=== PATIENT | male | born 1980 | race Hispanic/Latino ===

== ENCOUNTER 2016-02-16 09:09 | Emergency (ER) | payer OTHER ==
[~2016-02-16] VITALS: Ht 165.1 cm; Wt 77.1 kg
[~2016-02-16 09:09] MED LIST: CEPH500C PO; FAMO-119 PO; SUCR1ORA5 PO
[2016-02-16] MEDS ORDERED: ONDANSETRON 4 MG/2 ML (SDV) Z0FRAN IVP ONE (10:15)
[2016-02-16] MEDS ORDERED: NS IV 1000 ML 1,000 ML IV SCH (10:15)
[2016-02-16] MEDS ORDERED: fentaNYL INJECTION 100 MCG/2 ML AMP IVP ONE (10:15)
--- NOTE | 2016-02-16 10:21 | ED Abdominal Pain ---
General Chief Complaint: Abdominal/GI Problems Stated Complaint: ABD PAIN Nursing Triage Note: PT C/O L FLANK PAIN. HE C/O WORSENING PAIN WITH DEEP BREATHS. HE DENIES N/V/D, DYSURIA, HEMATURIA, OR FEVER. Sepsis Screen: No Definite Risk Source of Information: Patient, Family Exam Limitations: Language Barrier (the patient has brought a friend who is a [employer] teacher.) History of Present Illness Time Seen By Provider: 10:18 Initial Comments This is a 35-year-old male presents with left lower quadrant pain that began suddenly 2 days ago. Patient's pain is severe in nature sharp in quality and nonradiating. It is made worse by palpation of the abdomen. The patient has had nausea without vomiting. He denies similar episode in the past. Patient's past medical history is essentially unremarkable. The patient has had no previous abdominal surgery. He has noted no change in his stools. He has had no associated hematuria. He denies frequency or dysuria. The patient does not consume alcohol heavily. He denies recreational drugs. Allergies and Home Medications Allergies Coded Allergies: No Known Drug Allergies (Unverified , 06/13/11) Home Medications Famotidine 20 Mg Tablet #30 20 MG PO BID Prescribed by: RHEA OZUNA on 10/21/142107 Sucralfate 1 Gm/10 Ml Oral.susp #1 1 GM PO QID Prescribed by: RHEA OZUNA on 10/21/142107 Review of Systems Constitutional: No chills, No fever EENTM: No Blurred Vision Respiratory: Denies Cough Cardiovascular: Denies Chest Pain Gastrointestinal: Abdominal PainDenies Diarrhea, Denies Nausea, Denies Rectal Bleeding, Denies Vomiting Genitourinary: Denies Burning, Denies Drainage, Denies Frequency, Denies Flank Pain, Denies Hematuria Musculoskeletal: No back pain Skin: No rash Psychiatric/Neurological: No Symptoms Reported Endocrine: No Symptoms Reported Hematologic/Lymphatic: No Symptoms Reported Past Pxozuqn-Voijpl-Ggkela Hx Patient Social History Alcohol Use: Occasionally Uses Recreational Drug Use: No Smoking Status: Never a Smoker Recent Foreign Travel: No Contact w/Someone Who Travel: No Recent Infectious Disease Expo: No Recent Hopitalizations: No Physical Abuse Screen: No Sexual Abuse: No Seasonal Allergies Seasonal Allergies: No Surgeries HX Surgeries: No Respiratory Hx Respiratory Disorders: No Cardiovascular Hx Cardiac Disorders: No Neurological Hx Neurological Disorders: No Genitourinary Hx Genitourinary Disorders: No Gastrointestinal Hx Gastrointestinal Disorders: Yes Gastrointestinal Disorders: Gastroesophageal Reflux Musculoskeletal Hx Musculoskeletal Disorders: No Endocrine Hx Endocrine Disorders: No HEENT HX ENT Disorders: No Cancer Hx Cancer: No Psychosocial Hx Psychiatric Problems: No Integumentary HX Skin/Integumentary Disorder: No Blood Transfusions Hx Blood Disorders: No Adverse Reaction to a Blood Tr: No Reviewed Nursing Assessment Reviewed/Agree w Nursing PMH: Yes Family Medical History Significant Family History: No Pertinent Family Hx Physical Exam Vital Signs VS - Last 72 Hours, by Label 02/16/16 09:44 Temp 98.0 Pulse 88 Resp 20 B/P 128/85 Pulse Ox 97 O2 Delivery Room Air Capillary Refill : Less Than 3 Seconds General Appearance: WD/WN mild distress HEENT: normal ENT inspection Neck: normal inspection Respiratory: lungs clear Cardiovascular: regular rate, rhythm no murmur Gastrointestinal: normal bowel sounds guarding tenderness (left lower quadrant ) Extremities: normal range of motion non-tender Back: normal inspection Neurologic/Psychiatric: no motor/sensory deficits alert Skin: normal color warm/dry Progress/Results/Core Measures Results/Orders Lab Results Laboratory Tests Test 02/16/16 10:15 Range/Units Alanine Aminotransferase (ALT/SGPT) 74 H 0-55 U/L Albumin 4.7 H 3.2-4.5 G/DL Alkaline Phosphatase 99 40-136 U/L Anion Gap 9 5-14 MMOL/L Aspartate Amino Transf (AST/SGOT) 30 5-34 U/L BUN/Creatinine Ratio 27 Basophils # (Auto) 0.0 0.0-0.1 10^3/uL Basophils (%) (Auto) 0 0-10 % Blood Urea Nitrogen 20 H 7-18 MG/DL Calcium Level 9.2 8.5-10.1 MG/DL Carbon Dioxide Level 25 21-32 MMOL/L Chloride Level 103 98-107 MMOL/L Creatinine 0.75 0.60-1.30 MG/DL Eosinophils # (Auto) 0.7 H 0.0-0.3 10^3/uL Eosinophils (%) (Auto) 5 0-10 % Estimat Glomerular Filtration Rate > 60 Glucose Level 108 H 70-105 MG/DL Hematocrit 48 40-54 % Hemoglobin 17.2 13.3-17.7 G/DL Lipase 26 8-78 U/L Lymphocytes # (Auto) 1.6 1.0-4.0 X 10^3 Lymphocytes (%) (Auto) 12 12-44 % Mean Corpuscular Hemoglobin 31 25-34 PG Mean Corpuscular Hemoglobin Concent 36 32-36 G/DL Mean Corpuscular Volume 88 80-99 FL Mean Platelet Volume 10.6 H 7.4-10.4 FL Monocytes # (Auto) 1.1 H 0.0-1.0 X 10^3 Monocytes (%) (Auto) 8 0-12 % Neutrophils # (Auto) 10.1 H 1.8-7.8 X 10^3 Neutrophils (%) (Auto) 74 42-75 % Platelet Count 244 130-400 10^3/uL Potassium Level 3.8 3.6-5.0 MMOL/L Red Blood Count 5.49 4.35-5.85 10^6/uL Red Cell Distribution Width 13.0 10.0-14.5 % Sodium Level 137 135-145 MMOL/L Total Bilirubin 1.7 H 0.1-1.0 MG/DL Total Protein 7.5 6.4-8.2 G/DL White Blood Count 13.6 H 4.3-11.0 10^3/uL My Orders Orders-RUBEN VELAZQUEZ MD Ct Abdomen/Pelvis Wo (02/16/16 10:15) Cbc With Automated Diff (02/16/16 10:15) Comprehensive Metabolic Panel (02/16/16 10:15) Ua Culture If Indicated (02/16/16 10:15) Lipase (02/16/16 10:15) Ns Iv 1000 Ml (Sodium Chloride 0.9%) (02/16/16 10:15) Fentanyl Injection (Sublimaze Injection (02/16/16 10:15) Ondansetron Injection (Zofran Injectio (02/16/16 10:15) Medications Given in ED Current Medications Medications Dose Ordered Sig/Blade Route Start Time Stop Time Status Last Admin Dose Admin Fentanyl Citrate 50 mcg ONCE ONCE IVP 02/16/16 10:15 02/16/16 10:19 DC 02/16/16 10:25 50 MCG Vital Signs/I&O Vital Sign - Last 12Hours 02/16/16 09:44 Temp 98.0 Pulse 88 Resp 20 B/P 128/85 Pulse Ox 97 O2 Delivery Room Air Blood Pressure Mean: 99 Progress Note : Time: 11:03 Progress Note The patient's CT demonstrated uncomplicated diverticulitis of the descending colon. The patient's white count was elevated at 13,000. Patient's lipase was normal. Patient was treated with IV fentanyl and Zofran. Patient had only moderate relief with the pain and nausea medicine. I discussed treatment options with patient. The patient is comfortable with outpatient treatment. Most importantly the patient understands return to the emergency department if he worsens. Patient will follow up with his caregiver choice tomorrow. Will use Flagyl and Cipro for antibiotic coverage and hydrocodone and Zofran for pain and nausea. Departure Impression Impression: Primary Impression: Diverticulitis of intestine Qualified Code: K57.32 - Diverticulitis of large intestine without perforation or abscess without bleeding Disposition: 01 HOME, SELF-CARE Condition: Improved Departure-Patient Inst. Decision time for Depature: 11:08 Referrals: [facility],LOCAL PHYSICIAN (PCP) Primary Care Physician Patient Instructions: Diverticulitis (DC) Add. Discharge Instructions: Zofran, Vicodin, Cipro, and Flagyl as prescribed. Close follow-up with [facility] tomorrow. Return if any problems or questions. All discharge instructions reviewed with patient and/or family. Voiced understanding. RUBEN VELAZQUEZ MD Feb 16, 2016 10:21
[2016-02-16 10:22] LABS: BASOPHILS % (AUTO) 0 % (0-10); EOSINOPHILS # (AUTO) 0.7 10^3/uL (0.0-0.3); EOSINOPHILS % (AUTO) 5 % (0-10); LYMPHOCYTES # (AUTO) 1.6 X 10^3 (1.0-4.0); LYMPHOCYTES % (AUTO) 12 % (12-44); MEAN CORPUSCULAR HEMOGLOBIN 31 PG (25-34); MEAN CORPUSCULAR HGB CONC 36 G/DL (32-36); MEAN CORPUSCULAR VOLUME 88 FL (80-99); MEAN PLATELET VOLUME 10.6 FL (7.4-10.4); MONOCYTES # (AUTO) 1.1 X 10^3 (0.0-1.0); MONOCYTES % (AUTO) 8 % (0-12); NEUTROPHILS # (AUTO) 10.1 X 10^3 (1.8-7.8); NEUTROPHILS % (AUTO) 74 % (42-75); PLATELET COUNT 244 10^3/uL (130-400); RED BLOOD COUNT 5.49 10^6/uL (4.35-5.85); WHITE BLOOD COUNT 13.6 10^3/uL (4.3-11.0)
[2016-02-16 10:43] LABS: ALANINE AMINOTRANSFERASE 74 U/L (0-55); ALBUMIN 4.7 G/DL (3.2-4.5); ANION GAP 9 MMOL/L (5-14); ASPARTATE AMINO TRANSFERASE 30 U/L (5-34); BILIRUBIN,TOTAL 1.7 MG/DL (0.1-1.0); BLOOD UREA NITROGEN 20 MG/DL (7-18); BUN/CREATININE RATIO 27; CALCIUM 9.2 MG/DL (8.5-10.1); CARBON DIOXIDE 25 MMOL/L (21-32); CHLORIDE 103 MMOL/L (98-107); CREATININE SERUM 0.75 MG/DL (0.60-1.30); GFR ESTIMATED > 60; GLUCOSE 108 MG/DL (70-105); LIPASE 26 U/L (8-78); POTASSIUM 3.8 MMOL/L (3.6-5.0); SODIUM 137 MMOL/L (135-145); TOTAL PROTEIN 7.5 G/DL (6.4-8.2)
--- NOTE | 2016-02-16 10:50 | Diagnostic Imaging Report ---
PROCEDURE: CT abdomen and pelvis without contrast. TECHNIQUE: Multiple contiguous axial images were obtained through the abdomen and pelvis without the use of intravenous contrast. INDICATION: Left flank pain. COMPARISON: None available. FINDINGS: The visualized lung bases are clear. Diffusely decreased density of the liver, consistent with fatty infiltration of the liver. The liver is mildly enlarged. No focal hepatic mass identified. The spleen is unremarkable. The adrenal glands are unremarkable. The pancreas is unremarkable. The gallbladder is unremarkable. The bilateral kidneys and ureters are unremarkable. No aneurysmal dilatation of abdominal aorta. Tiny fat-containing umbilical hernia. The urinary bladder is unremarkable. Mild colonic diverticulosis. There is mural thickening with adjacent fat stranding within the mid descending colon. No adjacent focal fluid collection. The appendix is unremarkable. No bowel obstruction or pneumatosis. No significant adenopathy or free air. Trace free fluid in the left paracolic gutter. No acute osseous abnormality. IMPRESSION: 1. Findings are concerning for acute uncomplicated diverticulitis within the mid descending colon. No evidence of perforation or abscess formation. 2. Fatty infiltration of the liver with mild hepatomegaly. 3. Tiny fat-containing umbilical hernia. 4. Additional findings as above. Dictated by: Dictated on workstation # [id number]
[2016-02-16 11:18] VITALS: BP 128/85
== END 2016-02-16 11:18 | disposition home or self-care (01) ==
LOC: EDUNIT# 09:09 → ER 09:12
DX: K57.32 Diverticulitis of large intestine without perforation or abscess without bleeding (principal); K76.0 Fatty (change of) liver, not elsewhere classified; K42.9 Umbilical hernia without obstruction or gangrene
CPT/HCPCS: 36415; 74176; 80053; 83690; 85025; 96361; 96374

== ENCOUNTER 2016-05-10 15:52 | Emergency (ER) | payer SELFPAY ==
[~2016-05-10] VITALS: Ht 165.1 cm; Wt 77.1 kg
[2016-05-10] MEDS ORDERED: ONDANSETRON 4 MG/2 ML (SDV) Z0FRAN IVP ONE (16:30)
[2016-05-10] MEDS ORDERED: NS IV 1000 ML 1,000 ML IV SCH (16:30)
[2016-05-10] MEDS ORDERED: fentaNYL INJECTION 100 MCG/2 ML AMP IVP ONE (16:30)
--- NOTE | 2016-05-10 16:38 | ED GI ---
General Chief Complaint: Abdominal/GI Problems Stated Complaint: L SIDE PAIN Nursing Triage Note: PT C/O LLQ AND L FLANK PAIN. PT WAS HERE ON 02/16/16 FOR SAME SYMPTOMS AND WAS TX FOR DIVERTICULITIS WITH ABX, ZOFRAN, AND HYDROCODONE. PT HAS THESE MEDICATIONS WITH HIM TODAY AND ALL STILL HAVE MEDS IN THEM. Sepsis Screen: No Definite Risk Source of Information: Patient, Family Exam Limitations: Language Barrier History of Present Illness Time Seen By Provider: 16:34 Initial Comments This 35-year-old male presents with a complaint of left lower quadrant and left flank pain that began last night. The patient was here in February with a similar presentation from diverticulitis. The patient was treated with Cipro and Flagyl which she used for several days until his pain abated. The patient's pain is sharp in nature and non-radiating and is associated with nausea without vomiting. The patient took 2 of his Vicodin which he had at home for his pain without significant relief. Allergies and Home Medications Allergies Coded Allergies: No Known Drug Allergies (Unverified , 06/13/11) Home Medications Famotidine 20 Mg Tablet, 20 MG PO BID, #30 Ref 0 Prescribed by: RHEA OZUNA on 10/21/142107 Sucralfate 1 Gm/10 Ml Oral.susp, 1 GM PO QID, #1 Ref 1 Prescribed by: RHEA OZUNA on 10/21/142107 Review of Systems Constitutional: No chills, No fever EENTM: No Blurred Vision Respiratory: Denies Cough Cardiovascular: Denies Chest Pain Gastrointestinal: Abdominal Pain, Denies Diarrhea, Nausea, Denies Vomiting Genitourinary: Denies Burning, Denies Frequency, Flank Pain (left-sided) Musculoskeletal: No back pain Skin: No change in color, No rash Endocrine: No Symptoms Reported Hematologic/Lymphatic: No Symptoms Reported Past Qmwlmhl-Djdewo-Dtjjjh Hx Patient Social History Alcohol Use: Denies Use Recreational Drug Use: No Smoking Status: Never a Smoker 2nd Hand Smoke Exposure: No Recent Foreign Travel: No Contact w/Someone Who Travel: No Recent Infectious Disease Expo: No Recent Hopitalizations: No Seasonal Allergies Seasonal Allergies: No Surgeries HX Surgeries: No Respiratory Hx Respiratory Disorders: No Cardiovascular Hx Cardiac Disorders: No Neurological Hx Neurological Disorders: No Genitourinary Hx Genitourinary Disorders: No Gastrointestinal Hx Gastrointestinal Disorders: Yes Gastrointestinal Disorders: Gastroesophageal Reflux Musculoskeletal Hx Musculoskeletal Disorders: No Endocrine Hx Endocrine Disorders: No HEENT HX ENT Disorders: No Cancer Hx Cancer: No Psychosocial Hx Psychiatric Problems: No Integumentary HX Skin/Integumentary Disorder: No Blood Transfusions Hx Blood Disorders: No Adverse Reaction to a Blood Tr: No Reviewed Nursing Assessment Reviewed/Agree w Nursing PMH: Yes Family Medical History Significant Family History: No Pertinent Family Hx Physical Exam Vital Signs VS - Last 72 Hours, by Label 05/10/16 16:10 Temp 98.1 Pulse 85 Resp 16 B/P (MAP) 124/74 Pulse Ox 97 O2 Delivery Room Air Capillary Refill : Less Than 3 Seconds General Appearance: WD/WN, mild distress HEENT: normal ENT inspection, No scleral icterus (L) Neck: non-tender, full range of motion, supple Respiratory: chest non-tender, lungs clear, normal breath sounds Cardiovascular: regular rate, rhythm, no edema Gastrointestinal: normal bowel sounds, tenderness Extremities: normal range of motion, non-tender, normal inspection Back: normal inspection, no CVA tenderness Neurologic/Psychiatric: no motor/sensory deficits, alert, normal mood/affect, oriented x 3 Skin: normal color, warm/dry Progress/Results/Core Measures Results/Orders Lab Results Laboratory Tests Test 05/10/16 16:55 Range/Units White Blood Count 17.7 H 4.3-11.0 10^3/uL Red Blood Count 5.42 4.35-5.85 10^6/uL Hemoglobin 16.7 13.3-17.7 G/DL Hematocrit 47 40-54 % Mean Corpuscular Volume 88 80-99 FL Mean Corpuscular Hemoglobin 31 25-34 PG Mean Corpuscular Hemoglobin Concent 35 32-36 G/DL Red Cell Distribution Width 13.2 10.0-14.5 % Platelet Count 263 130-400 10^3/uL Mean Platelet Volume 10.7 H 7.4-10.4 FL Neutrophils (%) (Auto) 76 H 42-75 % Lymphocytes (%) (Auto) 11 L 12-44 % Monocytes (%) (Auto) 9 0-12 % Eosinophils (%) (Auto) 4 0-10 % Basophils (%) (Auto) 0 0-10 % Neutrophils # (Auto) 13.5 H 1.8-7.8 X 10^3 Lymphocytes # (Auto) 2.0 1.0-4.0 X 10^3 Monocytes # (Auto) 1.5 H 0.0-1.0 X 10^3 Eosinophils # (Auto) 0.7 H 0.0-0.3 10^3/uL Basophils # (Auto) 0.0 0.0-0.1 10^3/uL My Orders Orders - RUBEN VELAZQUEZ MD Cbc With Automated Diff (05/10/16 16:29) Comprehensive Metabolic Panel (05/10/16 16:29) Ua Culture If Indicated (05/10/16 16:29) Lipase (05/10/16 16:29) Ct Abd/Pelvis Wo(Kidney Stone) (05/10/16 16:29) Ns Iv 1000 Ml (Sodium Chloride 0.9%) (05/10/16 16:30) Fentanyl Injection (Sublimaze Injection (05/10/16 16:30) Ondansetron Injection (Zofran Injectio (05/10/16 16:30) Saline Lock/Iv-Start (05/10/16 16:36) Manual Differential (05/10/16 16:55) Medications Given in ED Current Medications Medications Dose Ordered Sig/Blade Route Start Time Stop Time Status Last Admin Dose Admin Fentanyl Citrate 50 mcg ONCE ONCE IVP 05/10/16 16:30 05/10/16 16:33 DC 05/10/16 16:42 50 MCG Ondansetron HCl 4 mg ONCE ONCE IVP 05/10/16 16:30 05/10/16 16:33 DC 05/10/16 16:42 4 MG Vital Signs/I&O Vital Sign - Last 12Hours 05/10/16 16:10 Temp 98.1 Pulse 85 Resp 16 B/P (MAP) 124/74 Pulse Ox 97 O2 Delivery Room Air Blood Pressure Mean: 91 Progress Note : Time: 17:[address] of the abdomen and pelvis demonstrated acute diverticulitis of the descending colon. Patient was placed on outpatient therapy Flagyl 500 mg 3 times a day for 10 days Cipro 500 mg twice a day for 10 days and hydrocodone 5/325 mg 20 tablets 1- 2 every 4-6 as needed for pain. I asked that the patient follow up closely with acute health in the next 48 hours. He was invited to return to emergency department if any further problems or questions. Departure Impression Impression: Primary Impression: Diverticulitis of intestine Qualified Codes: K57.32 - Diverticulitis of large intestine without perforation or abscess without bleeding Disposition: 01 HOME, SELF-CARE Condition: Improved Departure-Patient Inst. Decision time for Depature: 17:36 Referrals: [facility],LOCAL PHYSICIAN (PCP) Primary Care Physician Patient Instructions: Diverticulitis (DC) Add. Discharge Instructions: Flagyl, Cipro, and hydrocodone as prescribed. Close follow-up with [facility] within the next 48 hours for your diverticulitis. Come back for any problems. All discharge instructions reviewed with patient and/or family. Voiced understanding. RUBEN VELAZQUEZ MD May 10, 2016 16:38
--- NOTE | 2016-05-10 17:13 | Diagnostic Imaging Report ---
PROCEDURE: CT urinary tract, rule out kidney stone. TECHNIQUE: Multiple contiguous axial images were obtained through the abdomen and pelvis without the use of intravenous contrast. INDICATION: Left flank and left lower quadrant abdominal pain. FINDINGS: The lung bases are clear. The liver appears normal. The gallbladder is present. Pancreas is normal. Spleen is not enlarged. Adrenals and kidneys are normal. There is diverticulosis of the colon. There are inflammatory changes around the colon in the distal descending colon and sigmoid colon suggesting diverticulitis. Urinary bladder is normal. Prostate is not enlarged. There is no intraperitoneal free air or free fluid. IMPRESSION: Diverticulitis of the descending colon. Dictated by: Dictated on workstation # [id number]
[2016-05-10 17:17] LABS: BASOPHILS % (AUTO) 0 % (0-10); EOSINOPHILS # (AUTO) 0.7 10^3/uL (0.0-0.3); EOSINOPHILS % (AUTO) 4 % (0-10); LYMPHOCYTES % (AUTO) 11 % (12-44); MEAN CORPUSCULAR HEMOGLOBIN 31 PG (25-34); MEAN CORPUSCULAR HGB CONC 35 G/DL (32-36); MEAN CORPUSCULAR VOLUME 88 FL (80-99); MEAN PLATELET VOLUME 10.7 FL (7.4-10.4); MONOCYTES # (AUTO) 1.5 X 10^3 (0.0-1.0); MONOCYTES % (AUTO) 9 % (0-12); NEUTROPHILS # (AUTO) 13.5 X 10^3 (1.8-7.8); NEUTROPHILS % (AUTO) 76 % (42-75); PLATELET COUNT 263 10^3/uL (130-400); RED BLOOD COUNT 5.42 10^6/uL (4.35-5.85); RED CELL DISTRIBUTION WIDTH 13.2 % (10.0-14.5); WHITE BLOOD COUNT 17.7 10^3/uL (4.3-11.0)
[2016-05-10 17:33] LABS: BAND NEUTROPHILS 1 %; BASOPHILS % (MANUAL) 0 %; EOSINOPHILS % (MANUAL) 4 %; LYMPHOCYTES % (MANUAL) 24 %; NEUTROPHILS % (MANUAL) 71 %
[2016-05-10 17:37] LABS: ALANINE AMINOTRANSFERASE 88 U/L (0-55); ALBUMIN 4.5 G/DL (3.2-4.5); ANION GAP 12 MMOL/L (5-14); ASPARTATE AMINO TRANSFERASE 41 U/L (5-34); BILIRUBIN,TOTAL 1.6 MG/DL (0.1-1.0); BLOOD UREA NITROGEN 15 MG/DL (7-18); BUN/CREATININE RATIO 19; CALCIUM 9.2 MG/DL (8.5-10.1); CARBON DIOXIDE 24 MMOL/L (21-32); CHLORIDE 100 MMOL/L (98-107); CREATININE SERUM 0.77 MG/DL (0.60-1.30); GFR ESTIMATED > 60; GLUCOSE 94 MG/DL (70-105); LIPASE 25 U/L (8-78); POTASSIUM 3.5 MMOL/L (3.6-5.0); SODIUM 136 MMOL/L (135-145); TOTAL PROTEIN 7.6 G/DL (6.4-8.2)
[2016-05-10 17:57] VITALS: BP 124/74
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
== END 2016-05-10 17:57 | disposition home or self-care (01) ==
LOC: EDUNIT# 15:52 → ER 15:55
DX: K57.32 Diverticulitis of large intestine without perforation or abscess without bleeding (principal)
CPT/HCPCS: 36415; 74176; 80053; 83690; 85007; 85027; 96374; 96375

== ENCOUNTER 2016-07-22 18:31 | Emergency (ER) | payer SELFPAY ==
[~2016-07-22] VITALS: Ht 160 cm; Wt 90.7 kg
[2016-07-22] MEDS ORDERED: OMEP20CA12 PO (18:50)
[2016-07-22] MEDS ORDERED: NS IV 1000 ML 1,000 ML IV ONE (19:05)
--- NOTE | 2016-07-22 19:10 | ED Abdominal Pain ---
General Chief Complaint: Abdominal/GI Problems Stated Complaint: L SIDE STOMACH PAIN Nursing Triage Note: PT AMBULATED TO ROOM, PT STATES HE IS HAVING LEFT LOWER ABD PAIN. PT ALSO STATES HE IS HAVING GENERALIZED PAIN ALL OVER. PT REPORTS PAIN STARTED YESTERDAY. Sepsis Screen: Possible Sepsis Risk Source of Information: Patient, Family, Old Records, RN Notes Reviewed Exam Limitations: Language Barrier History of Present Illness Time Seen By Provider: 18:57 Initial Comments Patient presents along c/ his family c/ c/o LLQ abdominal pain that apparently started yesterday and has become progressively worse. Worse c/ movement. Denies any N/V/D, or constipation; No symptoms. Did have low grade fever here. Patient's Slovenian is some what limited. Review of records reveal 2 visits here this year for diverticulitis which would be high on his differential tonight. Timing/Duration: 24 Hours Severity/Quality: Moderate Location: LLQ Radiation: No Radiation Activities at Onset: None Modifying Factors: Worsens With Movement, Improves With Resting Associated Symptoms: Denies Symptoms Allergies and Home Medications Allergies Coded Allergies: No Known Drug Allergies (Unverified , 06/13/11) Home Medications Ciprofloxacin HCl 500 Mg Tablet, 500 MG PO BID, #20 Ref 0 Prescribed by: EDWARD STRAUSS on 07/22/162057 Hydrocodone/Acetaminophen 1 Each Tablet, 1 EACH PO Q6H, #20 Ref 0 Prescribed by: EDWARD STRAUSS on 07/22/162057 Metronidazole 500 Mg Tablet, 500 MG PO QID, #40 Ref 0 Prescribed by: EDWARD STRAUSS on 07/22/162057 Omeprazole 20 Mg Capsule.dr, 20 MG PO, (Reported) Review of Systems Constitutional: see HPI Gastrointestinal: See HPI, Abdominal Pain (LLQ) All Other Systems Reviewed Negative Unless Noted: Yes (Negative excepted noted.) Past Vxvmaop-Zhiyvu-Zwxlqj Hx Patient Social History Alcohol Use: Denies Use Recreational Drug Use: No Smoking Status: Never a Smoker 2nd Hand Smoke Exposure: No Recent Foreign Travel: No Contact w/Someone Who Travel: No Recent Infectious Disease Expo: No Recent Hopitalizations: No Seasonal Allergies Seasonal Allergies: No Surgeries HX Surgeries: No Respiratory Hx Respiratory Disorders: No Cardiovascular Hx Cardiac Disorders: No Neurological Hx Neurological Disorders: No Genitourinary Hx Genitourinary Disorders: No Gastrointestinal Hx Gastrointestinal Disorders: Yes Gastrointestinal Disorders: Gastroesophageal Reflux Musculoskeletal Hx Musculoskeletal Disorders: No Endocrine Hx Endocrine Disorders: No HEENT HX ENT Disorders: No Cancer Hx Cancer: No Psychosocial Hx Psychiatric Problems: No Integumentary HX Skin/Integumentary Disorder: No Blood Transfusions Hx Blood Disorders: No Adverse Reaction to a Blood Tr: No Family Medical History Significant Family History: No Pertinent Family Hx Physical Exam Vital Signs VS - Last 72 Hours, by Label 07/22/16 18:44 Temp 99.8 Pulse 111 Resp 20 B/P (MAP) 137/82 Pulse Ox 96 O2 Delivery Room Air Capillary Refill : Less Than 3 Seconds General Appearance: WD/WN, no apparent distress, obese HEENT: normal ENT inspection Neck: normal inspection Respiratory: no respiratory distress Cardiovascular: tachycardia Gastrointestinal: distended, guarding (LLQ), tenderness (LLQ) Rectal: deferred Back: CVA tenderness (L) Neurologic/Psychiatric: no motor/sensory deficits, alert, normal mood/affect, oriented x 3 Skin: warm/dry Progress/Results/Core Measures Results/Orders Lab Results Laboratory Tests Test 07/22/16 19:02 Range/Units White Blood Count 15.2 H 4.3-11.0 10^3/uL Red Blood Count 4.91 4.35-5.85 10^6/uL Hemoglobin 15.2 13.3-17.7 G/DL Hematocrit 44 40-54 % Mean Corpuscular Volume 89 80-99 FL Mean Corpuscular Hemoglobin 31 25-34 PG Mean Corpuscular Hemoglobin Concent 35 32-36 G/DL Red Cell Distribution Width 13.5 10.0-14.5 % Platelet Count 230 130-400 10^3/uL Mean Platelet Volume 11.0 H 7.4-10.4 FL Neutrophils (%) (Auto) 77 H 42-75 % Lymphocytes (%) (Auto) 9 L 12-44 % Monocytes (%) (Auto) 11 0-12 % Eosinophils (%) (Auto) 2 0-10 % Basophils (%) (Auto) 0 0-10 % Neutrophils # (Auto) 11.7 H 1.8-7.8 X 10^3 Lymphocytes # (Auto) 1.4 1.0-4.0 X 10^3 Monocytes # (Auto) 1.7 H 0.0-1.0 X 10^3 Eosinophils # (Auto) 0.4 H 0.0-0.3 10^3/uL Basophils # (Auto) 0.0 0.0-0.1 10^3/uL Neutrophils % (Manual) 75 % Lymphocytes % (Manual) 23 % Monocytes % (Manual) 0 % Eosinophils % (Manual) 0 % Basophils % (Manual) 0 % Band Neutrophils 2 % Blood Morphology Comment NORMAL Urine Color CURT H Urine Clarity SLIGHTLY CLOUDY Urine pH 6 5-9 Urine Specific [place] 1.020 1.016-1.022 Urine Protein 1+ H NEGATIVE Urine Glucose (UA) NEGATIVE NEGATIVE Urine Ketones NEGATIVE NEGATIVE Urine Nitrite NEGATIVE NEGATIVE Urine Bilirubin NEGATIVE NEGATIVE Urine Urobilinogen 4 H NORMAL MG/DL Urine Leukocyte Esterase NEGATIVE NEGATIVE Urine RBC (Auto) NEGATIVE NEGATIVE Urine RBC NONE /HPF Urine WBC RARE /HPF Urine Squamous Epithelial Cells 0-2 /HPF Urine Crystals NONE /LPF Urine Bacteria NEGATIVE /HPF Urine Casts NONE /LPF Urine Mucus NEGATIVE /LPF Urine Culture Indicated NO Sodium Level 136 135-145 MMOL/L Potassium Level 3.5 L 3.6-5.0 MMOL/L Chloride Level 102 98-107 MMOL/L Carbon Dioxide Level 22 21-32 MMOL/L Anion Gap 12 5-14 MMOL/L Blood Urea Nitrogen 14 7-18 MG/DL Creatinine 0.78 0.60-1.30 MG/DL Estimat Glomerular Filtration Rate > 60 BUN/Creatinine Ratio 18 0-20 Glucose Level 110 H 70-105 MG/DL Calcium Level 9.5 8.5-10.1 MG/DL Total Bilirubin 2.5 H 0.1-1.0 MG/DL Aspartate Amino Transf (AST/SGOT) 94 H 5-34 U/L Alanine Aminotransferase (ALT/SGPT) 152 H 0-55 U/L Alkaline Phosphatase 103 40-136 U/L Total Protein 7.9 6.4-8.2 GM/DL Albumin 4.4 3.2-4.5 GM/DL Lipase 24 8-78 U/L My Orders Orders - EDWARD STRAUSS DO Saline Lock/Iv-Start (07/22/16 19:05) Cbc With Automated Diff (07/22/16 19:05) Comprehensive Metabolic Panel (07/22/16 19:05) Lipase (07/22/16 19:05) Ua Culture If Indicated (07/22/16 19:05) Ns Iv 1000 Ml (Sodium Chloride 0.9%) (07/22/16 19:05) Ct Abdomen/Pelvis W (07/22/16 19:09) Ketorolac Injection (Toradol Injection) (07/22/16 19:15) Manual Differential (07/22/16 19:02) Iohexol Injection (Omnipaque 350 Mg/Ml 1 (07/22/16 19:15) Ns (Ivpb) (Sodium Chloride 0.9% Ivpb Bag (07/22/16 19:15) Metronidazole Tablet (Flagyl Tablet) (07/22/16 21:00) Ciprofloxacin Tablet (Cipro Tablet) (07/22/16 20:51) Rx-Hydrocodone/Apap 5-325 Mg (Rx-Vicodin (07/22/16 21:00) Hydrocodone/Apap 5/325 Tablet (Lortab 5 (07/22/16 21:08) Medications Given in ED Current Medications Medications Dose Ordered Sig/Blade Route Start Time Stop Time Status Last Admin Dose Admin Iohexol 100 ml ONCE ONCE IV 07/22/16 19:15 07/22/16 19:17 DC 07/22/16 19:36 100 ML Ketorolac Tromethamine 30 mg ONCE ONCE IVP 07/22/16 19:15 07/22/16 19:16 DC 07/22/16 19:20 30 MG Sodium Chloride 100 ml ONCE ONCE IV 07/22/16 19:15 07/22/16 19:17 DC 07/22/16 19:36 80 ML Sodium Chloride 1,000 ml @ 0 mls/hr Q0M ONCE IV 07/22/16 19:05 07/22/16 19:11 DC 07/22/16 19:20 1,000 MLS/HR Vital Signs/I&O Vital Sign - Last 12Hours 07/22/16 18:44 Temp 99.8 Pulse 111 Resp 20 B/P (MAP) 137/82 Pulse Ox 96 O2 Delivery Room Air Blood Pressure Mean: 100 Progress Note : Progress Note Discussed c/ Dr. Tenorio, surgeon communication manager, who happened to be around and came by the ED and saw the patient. Patient is going to follow up c/ him as an outpatient once this calms down. With this being the 3rd episode in 6 months, he is apparently a candidate for surgical resection of the area. Diagnostic Imaging Diagonstic Imaging: CT Plain Films/CT/US/NM/MRI: abdomen, pelvis Departure Impression Impression: Primary Impression: Diverticulitis of intestine Additional Impression: Abdominal pain Disposition: 01 HOME, SELF-CARE Condition: Stable Departure-Patient Inst. Referrals: NAVJOT TENORIO DO Patient Instructions: Diverticulitis (DC) Add. Discharge Instructions: All discharge instructions reviewed with patient and/or family. Voiced understanding. DR. TENORIO'S OFFICE WILL CONTACT YOU AND ARRANGE FOLLOW UP. Scripts Hydrocodone/Acetaminophen (Hydrocodon-Acetaminophn 10-325) 1 Each Tablet 1 EACH PO Q6H for Pain, #20 TAB 0 Refills Prov: EDWARD STRAUSS DO 07/22/16 Metronidazole (Flagyl) 500 Mg Tablet 500 MG PO QID for Abdominal Pain, #40 TAB 0 Refills Prov: EDWARD STRAUSS DO 07/22/16 Ciprofloxacin HCl (Cipro) 500 Mg Tablet 500 MG PO BID for Abdominal Pain, #20 TAB 0 Refills Prov: EDWARD STRAUSS DO 07/22/16 EDWARD STRAUSS DO Jul 22, 2016 19:10
[2016-07-22 19:12] LABS: BASOPHILS % (AUTO) 0 % (0-10); EOSINOPHILS # (AUTO) 0.4 10^3/uL (0.0-0.3); EOSINOPHILS % (AUTO) 2 % (0-10); LYMPHOCYTES # (AUTO) 1.4 X 10^3 (1.0-4.0); LYMPHOCYTES % (AUTO) 9 % (12-44); MEAN CORPUSCULAR HEMOGLOBIN 31 PG (25-34); MEAN CORPUSCULAR HGB CONC 35 G/DL (32-36); MEAN CORPUSCULAR VOLUME 89 FL (80-99); MONOCYTES # (AUTO) 1.7 X 10^3 (0.0-1.0); MONOCYTES % (AUTO) 11 % (0-12); NEUTROPHILS # (AUTO) 11.7 X 10^3 (1.8-7.8); NEUTROPHILS % (AUTO) 77 % (42-75); PLATELET COUNT 230 10^3/uL (130-400); RED BLOOD COUNT 4.91 10^6/uL (4.35-5.85); RED CELL DISTRIBUTION WIDTH 13.5 % (10.0-14.5); WHITE BLOOD COUNT 15.2 10^3/uL (4.3-11.0)
[2016-07-22 19:13] LABS: BILIRUBIN,URINE NEGATIVE (NEGATIVE); KETONES,URINE NEGATIVE (NEGATIVE); LEUKOCYTE ESTERASE ,URINE NEGATIVE (NEGATIVE); NITRITE,URINE NEGATIVE (NEGATIVE); PH,URINE 6 (5-9); PROTEIN,URINE 1+ (NEGATIVE); UROBILINOGEN,URINE 4 MG/DL (NORMAL)
[2016-07-22] MEDS ORDERED: KETOROLAC 30 MG/ML VIAL IVP ONE (19:15)
[2016-07-22] MEDS ORDERED: IOHEXOL 350 MG/ML 100 ML (OMNIPAQUE 350) VIAL IV ONE (19:15)
[2016-07-22] MEDS ORDERED: NS 100 ML (IVPB) BAG IV ONE (19:15)
[2016-07-22 19:32] LABS: ALANINE AMINOTRANSFERASE 152 U/L (0-55); ALBUMIN 4.4 GM/DL (3.2-4.5); ANION GAP 12 MMOL/L (5-14); ASPARTATE AMINO TRANSFERASE 94 U/L (5-34); BILIRUBIN,TOTAL 2.5 MG/DL (0.1-1.0); BLOOD UREA NITROGEN 14 MG/DL (7-18); BUN/CREATININE RATIO 18 (0-20); CALCIUM 9.5 MG/DL (8.5-10.1); CARBON DIOXIDE 22 MMOL/L (21-32); CHLORIDE 102 MMOL/L (98-107); CREATININE SERUM 0.78 MG/DL (0.60-1.30); GFR ESTIMATED > 60; GLUCOSE 110 MG/DL (70-105); HEMOLYSIS 9 (0-29); ICTERUS 1.8 (0-1.9); LIPASE 24 U/L (8-78); LIPEMIA 4 (0-49); POTASSIUM 3.5 MMOL/L (3.6-5.0); SODIUM 136 MMOL/L (135-145); TOTAL PROTEIN 7.9 GM/DL (6.4-8.2); WBC,URINE RARE /HPF
[2016-07-22 19:33] LABS: SQUAMOUS EPITHELIAL CELL,UR 0-2 /HPF
[2016-07-22 19:38] LABS: BAND NEUTROPHILS 2 %; BASOPHILS % (MANUAL) 0 %; EOSINOPHILS % (MANUAL) 0 %; LYMPHOCYTES % (MANUAL) 23 %; NEUTROPHILS % (MANUAL) 75 %
--- NOTE | 2016-07-22 20:00 | Diagnostic Imaging Report ---
PROCEDURE: CT abdomen and pelvis with contrast. TECHNIQUE: Multiple contiguous axial images were obtained through the abdomen and pelvis after administration of intravenous contrast. INDICATION: Left-sided abdominal pain radiating to the groin with diarrhea for last 2 days EXAMINATION: CT abdomen and pelvis with contrast 07/22/16 COMPARISON: 05/10/2016 FINDINGS: The visualized lung bases appear unremarkable. The osseous structures are stable from most recent imaging. Again noted is marked diffuse inflammatory change about the sigmoid colon with adjacent wall thickening. Multiple diverticuli in the region are seen and findings are consistent with acute diverticulitis. There is no adjacent abscess at this time. No free air is appreciated. No free fluid is seen in the pelvis. The appendix is unremarkable. There is no new lymphadenopathy in the abdomen nor the pelvis. There is diffuse fatty infiltration throughout the liver which is otherwise unremarkable. The spleen, adrenal glands, pancreas and kidneys unremarkable. Gallbladder is underdistended. IMPRESSION: 1. Findings of diverticulitis as discussed above without evidence for abscess or perforation at this time. Other incidental findings as noted above. Dictated by: Dictated on workstation # [id number]
[2016-07-22] MEDS ORDERED: CIPROFLOXACIN 500 MG (CIPRO) TABLET PO STA (20:51)
[2016-07-22] MEDS ORDERED: CIPR-225 PO (20:58)
[2016-07-22] MEDS ORDERED: HYDR-3820 PO (20:58)
[2016-07-22] MEDS ORDERED: METR500T PO (20:58)
[2016-07-22] MEDS ORDERED: RX-HYDROCODONE/APAP 5/325 MG #4 TAB PK PO PRN (21:00)
[2016-07-22] MEDS ORDERED: metroNIDAZOLE 500 MG (FLAGYL) TAB PO ONE (21:00)
--- NOTE | 2016-07-22 21:03 | Consultation ---
History of Present Illness History of Present Illness Patient Consulted On(piper/time) 07/22/16 20:58 Date of Admission History of Present Illness Surgery asked to consult regarding diverticulitis. HPI: Patient presented to the ER with his family, c/o LLQ abdominal pain that apparently started yesterday and has become progressively worse. Worse with movement. Denies any N/V/D, or constipation; No symptoms. Did have low grade fever here. Review of records reveal 2 visits here this year for diverticulitis. He rates the pain as a 4 out of 10 on a 1-10 scale. Sharp stabbing pain, no radiation. Pt denies hematochezia. Timing/Duration: 24 Hours Severity/Quality: Moderate Location: LLQ Radiation: No Radiation Activities at Onset: None Modifying Factors: Worsens With Movement, Improves With Resting Associated Symptoms: Denies Symptoms Allergies and Home Medications Allergies Coded Allergies: No Known Drug Allergies (Unverified , 06/13/11) Home Medications Omeprazole 20 Mg Capsule.dr, 20 MG PO, (Reported) Past Cmbbvpk-Avmhmg-Zgclve Hx Patient Social History Alcohol Use: Denies Use Recreational Drug Use: No Smoking Status: Never a Smoker 2nd Hand Smoke Exposure: No Recent Foreign Travel: No Contact w/Someone Who Travel: No Recent Infectious Disease Expo: No Recent Hopitalizations: No Seasonal Allergies Seasonal Allergies: No Surgeries HX Surgeries: No Respiratory Hx Respiratory Disorders: No Cardiovascular Hx Cardiac Disorders: No Neurological Hx Neurological Disorders: No Genitourinary Hx Genitourinary Disorders: No Gastrointestinal Hx Gastrointestinal Disorders: Yes Gastrointestinal Disorders: Gastroesophageal Reflux Musculoskeletal Hx Musculoskeletal Disorders: No Endocrine Hx Endocrine Disorders: No HEENT HX ENT Disorders: No Cancer Hx Cancer: No Psychosocial Hx Psychiatric Problems: No Integumentary HX Skin/Integumentary Disorder: No Blood Transfusions Hx Blood Disorders: No Adverse Reaction to a Blood Tr: No Family Medical History Significant Family History: No Pertinent Family Hx, Diabetes (parents) Review of Systems-General Time Seen by Provider: 20:22 Constitutional: chills, fever (but did not take with thermometer) EENTM: No blurred vision, No hearing loss, No mouth swelling, No throat swelling, No vision loss Respiratory: No cough, No dyspnea on exertion, No hemoptysis Cardiovascular: No chest pain, No edema, No palpitations Gastrointestinal: LLQ, abdominal pain, No hematemesis, No jaundice, No nausea, No vomiting Genitourinary: No decreased output, No dysuria, No frequency, No hematuria Musculoskeletal: No back pain, No joint pain, No muscle stiffness Skin: No change in color, No change in hair/nails, No lesions Psychiatric/Neurological: Denies Anxiety, Denies Depressed, Denies Emotional Problems, Denies Seizure, Denies Tingling, Denies Tremors, Denies Weakness Other pt denies any heat or cold intolerance, no abnormal bleeding, no swollen lymph nodes Physical Exam-General Problems Physical Exam Vital Signs Vital Sign - Last 12Hours 07/22/16 18:44 Temp 99.8 Pulse 111 Resp 20 B/P (MAP) 137/82 Pulse Ox 96 O2 Delivery Room Air Capillary Refill : Less Than 3 Seconds General Appearance: WD/WN, mild distress, obese Eyes: Bilateral Eye EOMI, Bilateral Eye PERRL HEENT: pharynx normal, No scleral icterus (R), No scleral icterus (L) Neck: non-tender, full range of motion, supple, normal inspection Respiratory: chest non-tender, lungs clear, normal breath sounds, no respiratory distress, no accessory muscle use Cardiovascular: regular rate, rhythm, no edema, no murmur Gastrointestinal: soft, no organomegaly, guarding (voluntary), tenderness (LLQ) , hernia (large incarcerated umbilical hernia) Rectal: deferred Back: no CVA tenderness, no vertebral tenderness Extremities: normal range of motion, non-tender, normal inspection, no pedal edema, no calf tenderness, normal capillary refill Neurologic/Psychiatric: protection [employer] industrial [employer] II-XII nml as tested, no motor/sensory deficits, alert, normal mood/affect, oriented x 3 Skin: normal color, warm/dry Lymphatic: no adenopathy (neck, axilla or groin) Data Review Labs Laboratory Tests 07/22/16 19:02: White Blood Count 15.2H, Red Blood Count 4.91, Hemoglobin 15.2, Hematocrit 44, Mean Corpuscular Volume 89, Mean Corpuscular Hemoglobin 31, Mean Corpuscular Hemoglobin Concent 35, Red Cell Distribution Width 13.5, Platelet Count 230, Mean Platelet Volume 11.0H, Neutrophils (%) (Auto) 77H, Lymphocytes (%) (Auto) 9L, Monocytes (%) (Auto) 11, Eosinophils (%) (Auto) 2, Basophils (%) (Auto) 0, Neutrophils # (Auto) 11.7H, Lymphocytes # (Auto) 1.4, Monocytes # (Auto) 1.7H, Eosinophils # (Auto) 0.4H, Basophils # (Auto) 0.0, Neutrophils % (Manual) 75, Lymphocytes % (Manual) 23, Monocytes % (Manual) 0, Eosinophils % (Manual) 0, Basophils % (Manual) 0, Band Neutrophils 2, Blood Morphology Comment NORMAL, Urine Color AMBERH, Urine Clarity SLIGHTLY CLOUDY, Urine pH 6, Urine Specific [place] 1.020, Urine Protein 1+H, Urine Glucose (UA) NEGATIVE, Urine Ketones NEGATIVE, Urine Nitrite NEGATIVE, Urine Bilirubin NEGATIVE, Urine Urobilinogen 4H, Urine Leukocyte Esterase NEGATIVE, Urine RBC (Auto) NEGATIVE, Urine RBC NONE , Urine WBC RARE, Urine Squamous Epithelial Cells 0-2, Urine Crystals NONE, Urine Bacteria NEGATIVE, Urine Casts NONE, Urine Mucus NEGATIVE, Urine Culture Indicated NO, Sodium Level 136, Potassium Level 3.5L, Chloride Level 102, Carbon Dioxide Level 22, Anion Gap 12, Blood Urea Nitrogen 14, Creatinine 0.78, Estimat Glomerular Filtration Rate > 60, BUN/Creatinine Ratio 18, Glucose Level 110H, Calcium Level 9.5, Total Bilirubin 2.5H, Aspartate Amino Transf (AST/SGOT ) 94H, Alanine Aminotransferase (ALT/SGPT) 152H, Alkaline Phosphatase 103, Total Protein 7.9, Albumin 4.4, Lipase 24 Assessment/Plan Assessment/Plan Assessment/Plan Acute Diverticulitis with elevated WBC, 3 episode past 5 months. Spoke to pt with the language line, wanted to make sure pt understood the disease and why I recommended surgery. He does not need surgery now, but should have elective surgery in order to avoid emergent surgery and possible colostomy. He will be sent home with ABX and f/u in my office in 2 weeks. If we plan surgery it is hopefully a one stage procedure. All questions answered to his and his family's satisfaction. If he gets worse he is to come back or call my office. NAVJOT TAPIA DO Jul 22, 2016 21:03
[2016-07-22] MEDS ORDERED: HYDROcodone/APAP 5 MG/325 MG (LORTAB) TAB ONE (21:08)
[2016-07-22] MEDS ORDERED: RX-HYDROCODONE/APAP 5/325 MG #4 TAB PK PO ONE (21:09)
[2016-07-22 21:24] VITALS: BP 137/82
== END 2016-07-22 21:24 | disposition home or self-care (01) ==
LOC: EDUNIT# 18:31 → ER 18:33
DX: K57.92 Diverticulitis of intestine, part unspecified, without perforation or abscess without bleeding (principal); K21.9 Gastro-esophageal reflux disease without esophagitis
CPT/HCPCS: 36415; 74177; 80053; 81000; 83690; 85007; 85027; 96361; 96374

== ENCOUNTER 2016-08-03 12:44 | Outpatient (CLI) | payer OTHER ==
[~2016-08-03] VITALS: Ht 160 cm; Wt 86.2 kg
[~2016-08-03 12:44] MED LIST changes: +CIPR-225 PO; +HYDR-3820 PO; +METR500T PO; +OMEP20CA12 PO
[2016-08-03 12:55] VITALS: BP 120/71
== END 2016-08-03 13:15 | disposition home or self-care (01) ==
LOC: PREOP 12:44
PROVIDERS: ATTEND Surgery
DX: Z01.818 Encounter for other preprocedural examination (principal); Z11.2 Encounter for screening for other bacterial diseases; K57.92 Diverticulitis of intestine, part unspecified, without perforation or abscess without bleeding
CPT/HCPCS: 87081

== ENCOUNTER 2016-08-06 08:11 | Inpatient (IN) | payer OTHER ==
[~2016-08-06] VITALS: Ht 160 cm; Wt 86.2 kg
[2016-08-06] MEDS ORDERED: ceFAZolin 2 GM/NS 50 ML IV ONE (10:00)
[2016-08-06] MEDS ORDERED: metroNIDAZOLE 500 MG/100 ML IVPB (PRE-MIX) IV ONE (10:00)
[2016-08-06] MEDS ORDERED: METR500T PO (10:17)
[2016-08-06] MEDS: LACTATED RINGERS 1,000 ML IV SCH ×5 (10:20→23:08)
[2016-08-06] MEDS ORDERED: ROCURONIUM 50 MG/5 ML (ZEMURON) VIAL IV ONE (12:42)
[2016-08-06] MEDS ORDERED: ONDANSETRON 4 MG/2 ML (SDV) Z0FRAN ONE (12:42)
[2016-08-06] MEDS ORDERED: PROPOFOL INJECTION 50 ML IV ONE (12:42)
[2016-08-06] MEDS ORDERED: LIDOCAINE PF 0.5% 50 ML (XYLOCAINE) VIAL ONE (12:42)
[2016-08-06] MEDS ORDERED: MIDAZOLAM 2 MG/2 ML (VERSED) VIAL ONE (12:43)
[2016-08-06] MEDS ORDERED: fentaNYL INJECTION 100 MCG/2 ML AMP ONE ×3 (12:43→15:01)
[2016-08-06] MEDS ORDERED: SEVOFLURANE (ULTANE) 15 ML INHAL SOLN ONE ×7 (12:44→14:56)
[2016-08-06] MEDS ORDERED: LACTATED RINGERS 1,000 ML IV ONE ×3 (12:44→14:56)
--- NOTE | 2016-08-06 12:47 | Progress Note-Pre Operative ---
Pre-Operative Progress Note H&P Reviewed The H&P was reviewed, patient examined and no changes noted. Time Seen by Provider: 12:43 Date H&P Reviewed: Aug 06, 2016 Time H&P Reviewed: 12:45 Pre-Operative Diagnosis: Chronic Sigmoid Diverticulitis NAVJOT TAPIA DO Aug 06, 2016 12:47
[2016-08-06] MEDS ORDERED: BUP/EPI 0.25% 1:200,000 (MARCAINE) 10 ML VIAL IJ ONE (13:22)
[2016-08-06] MEDS ORDERED: LIDOCAINE/EPI 1%-1:200,000 (XYLOCAINE) 30 ML VIAL ONE ×2 (13:22→13:48)
[2016-08-06] MEDS ORDERED: NEOSTIGMINE (BLOXIVERZ ) 1 MG/1ML 10 ML VIAL ONE (14:56)
[2016-08-06] MEDS ORDERED: GLYCOPYRROLATE 0.2 MG/ML (ROBINUL) 2 ML VIAL ONE (14:56)
--- NOTE | 2016-08-06 14:56 | Progress Note-Post Operative ---
Post-Operative Progess Note Surgeon (s)/Curing Machine Operator (s) Surgeon NAVJOT TAPIA DO Curing Machine Operator: Billie Pre-Operative Diagnosis Chronic Sigmoid Diverticulitis Post-Operative Diagnosis same Procedure & Operative Findings Date of Procedure 08/06/16 Procedure Performed/Findings Hand Assisted Laparoscopic Sigmoid colon resection with primary anastomosis Anesthesia Type GET Estimated Blood Loss Estimated blood loss (mL): minimal Specimens/Packing Specimens Removed portion of sigmoid colon NAVJOT TAPIA DO Aug 06, 2016 14:56
[2016-08-06] MEDS ORDERED: morphine INJ 10 MG/ML 1ML (SYR OR VIAL) IVP PRN ×2 (15:00)
[2016-08-06] MEDS ORDERED: ceFAZolin 2 GM/50 ML NS 50 ML IV SCH (15:00)
[2016-08-06] MEDS ORDERED: ONDANSETRON 4 MG/2 ML (SDV) Z0FRAN IVP PRN ×3 (15:00→15:30)
[2016-08-06] MEDS ORDERED: fentaNYL INJECTION 100 MCG/2 ML AMP IVP PRN (15:00)
[2016-08-06] MEDS: morphine INJ 10 MG/ML 1ML (SYR OR VIAL) IVP PRN ×2 (15:35→15:40)
[2016-08-06] MEDS: KETOROLAC 30 MG/ML VIAL IVP SCH ×2 (15:51→22:13)
[2016-08-06 16:20] VITALS: BP 142/88
[2016-08-06] MEDS: ACETAMINOPHEN 500 MG TAB (TYLENOL) PO PRN (20:11)
[2016-08-06 20:55] VITALS: BP 103/64
[2016-08-06] MEDS: ceFAZolin 2 GM/50 ML NS 50 ML IV SCH (22:14)
[2016-08-06 23:35] VITALS: BP 107/59
[2016-08-07] MEDS: LACTATED RINGERS 1,000 ML IV SCH ×2 (02:15→14:55)
[2016-08-07 04:35] VITALS: BP 104/56
[2016-08-07] MEDS: KETOROLAC 30 MG/ML VIAL IVP SCH ×4 (04:35→20:15)
[2016-08-07] MEDS: ceFAZolin 2 GM/50 ML NS 50 ML IV SCH (05:41)
[2016-08-07 08:03] VITALS: BP 96/57
--- NOTE | 2016-08-07 09:21 | Anesthesia-General Post-Op ---
General Patient Condition Mental Status/LOC: Same as Preop Cardiovascular: Satisfactory Nausea/Vomiting: Absent Respiratory: Satisfactory Pain: Controlled Complications: Absent Post Op Complications Complications None Follow Up Care/Instructions Patient Instructions None needed. Anesthesia/Patient Condition Patient Condition Patient is doing well, no complaints, stable vital signs, no apparent adverse anesthesia problems. No complications reported per nursing. D/C home per [facility] Criteria: No MARYJANE LONDON CRNA Aug 07, 2016 09:21
[2016-08-07] MEDS: PANTOPRAZOLE 40 MG/10 ML (PROTONIX) VIAL IVP SCH (09:25)
[2016-08-07 10:11] LABS: BASOPHILS % (AUTO) 0 % (0-10); EOSINOPHILS # (AUTO) 0.5 10^3/uL (0.0-0.3); EOSINOPHILS % (AUTO) 5 % (0-10); LYMPHOCYTES # (AUTO) 1.5 X 10^3 (1.0-4.0); LYMPHOCYTES % (AUTO) 15 % (12-44); MEAN CORPUSCULAR HEMOGLOBIN 31 PG (25-34); MEAN CORPUSCULAR HGB CONC 34 G/DL (32-36); MEAN CORPUSCULAR VOLUME 90 FL (80-99); MEAN PLATELET VOLUME 10.3 FL (7.4-10.4); MONOCYTES # (AUTO) 0.6 X 10^3 (0.0-1.0); MONOCYTES % (AUTO) 6 % (0-12); NEUTROPHILS # (AUTO) 7.6 X 10^3 (1.8-7.8); NEUTROPHILS % (AUTO) 74 % (42-75); PLATELET COUNT 320 10^3/uL (130-400); RED BLOOD COUNT 4.91 10^6/uL (4.35-5.85); RED CELL DISTRIBUTION WIDTH 13.5 % (10.0-14.5); WHITE BLOOD COUNT 10.2 10^3/uL (4.3-11.0)
[2016-08-07 10:45] LABS: ALANINE AMINOTRANSFERASE 71 U/L (0-55); ALBUMIN 3.7 GM/DL (3.2-4.5); ANION GAP 7 MMOL/L (5-14); ASPARTATE AMINO TRANSFERASE 34 U/L (5-34); BILIRUBIN,TOTAL 1.8 MG/DL (0.1-1.0); BLOOD UREA NITROGEN 12 MG/DL (7-18); BUN/CREATININE RATIO 16; CALCIUM 8.7 MG/DL (8.5-10.1); CARBON DIOXIDE 26 MMOL/L (21-32); CHLORIDE 105 MMOL/L (98-107); CREATININE SERUM 0.76 MG/DL (0.60-1.30); GFR ESTIMATED > 60; GLUCOSE 101 MG/DL (70-105); POTASSIUM 3.6 MMOL/L (3.6-5.0); SODIUM 138 MMOL/L (135-145); TOTAL PROTEIN 6.7 GM/DL (6.4-8.2)
[2016-08-07 12:35] VITALS: BP 94/54
--- NOTE | 2016-08-07 14:51 | Progress Note ---
Subjective Time Seen by Provider: 14:42 Subjective/Events-last exam Pt denies N/V. No BM or flatus yet. Pain mostly controlled, most pain is at midline incision. Tolerating diet. Review of Systems General: No Chills, No Night Sweats Pulmonary: No Cough Cardiovascular: No: Chest Pain Objective Exam Vital Signs Date Time Temp Pulse Resp B/P (MAP) Pulse Ox O2 Delivery O2 Flow Rate FiO2 08/07/16 12:35 98.0 58 20 94/54 97 Room Air 08/07/16 08:03 97.9 63 18 96/57 98 Room Air 08/07/16 04:35 104/56 08/07/16 04:00 98.2 69 20 97 Room Air 08/06/16 23:35 98.8 67 20 107/59 95 Room Air 08/06/16 20:55 98.9 73 18 103/64 97 Room Air 08/06/16 16:49 96 Room Air 08/06/16 16:25 97.9 08/06/16 16:25 97.9 08/06/16 16:20 98.2 72 18 142/88 96 Room Air I & O 08/07/16 07:00 Intake Total 3250 ml Output Total 975 ml Balance 2275 ml Capillary Refill : Less Than 3 Seconds General Appearance: No Apparent Distress, WD/WN Respiratory: Lungs Clear Cardiovascular: Regular Rate, Rhythm Gastrointestinal: other (Decreased bowel sounds, incision c/d/i) Results Lab Laboratory Tests 08/07/16 10:00: White Blood Count 10.2, Red Blood Count 4.91, Hemoglobin 15.0, Hematocrit 44, Mean Corpuscular Volume 90, Mean Corpuscular Hemoglobin 31, Mean Corpuscular Hemoglobin Concent 34, Red Cell Distribution Width 13.5, Platelet Count 320, Mean Platelet Volume 10.3, Neutrophils (%) (Auto) 74, Lymphocytes (%) (Auto) 15 , Monocytes (%) (Auto) 6, Eosinophils (%) (Auto) 5, Basophils (%) (Auto) 0, Neutrophils # (Auto) 7.6, Lymphocytes # (Auto) 1.5, Monocytes # (Auto) 0.6, Eosinophils # (Auto) 0.5H, Basophils # (Auto) 0.0, Sodium Level 138, Potassium Level 3.6, Chloride Level 105, Carbon Dioxide Level 26, Anion Gap 7, Blood Urea Nitrogen 12, Creatinine 0.76, Estimat Glomerular Filtration Rate > 60, BUN/ Creatinine Ratio 16, Glucose Level 101, Calcium Level 8.7, Total Bilirubin 1.8H , Aspartate Amino Transf (AST/SGOT) 34, Alanine Aminotransferase (ALT/SGPT) 71H , Alkaline Phosphatase 90, Total Protein 6.7, Albumin 3.7 Assessment/Plan Assessment/Plan Assessment/Plan S/P Hand assisted Lap Sigmoid Resection Heplock IV, increase to regular diet, encourage IS use, encourage ambulation, Hay d/c'd Clinical Quality Measures DVT/VTE Risk/Contraindication: Risk Factor Score Per Nursin RFS Level Per Nursing on Admit: 2=Moderate NAVJOT TAPIA DO Aug 07, 2016 14:51
[2016-08-07] MEDS: ACETAMINOPHEN 500 MG TAB (TYLENOL) PO PRN (14:56)
[2016-08-07 16:50] VITALS: BP 111/72
[2016-08-07 23:45] VITALS: BP 117/71
[2016-08-08] MEDS: KETOROLAC 30 MG/ML VIAL IVP SCH ×2 (03:30→08:32)
[2016-08-08 03:55] VITALS: BP 107/68
[2016-08-08 07:50] VITALS: BP 114/73
[2016-08-08] MEDS: PANTOPRAZOLE 40 MG/10 ML (PROTONIX) VIAL IVP SCH (08:32)
[2016-08-08] MEDS ORDERED: HYDR-3812 PO (11:39)
--- NOTE | 2016-08-08 11:40 | Discharge Inst-Surgical ---
Discharge Inst-Surgical Depart Medication/Instructions New, Converted or Re-Newed RX: RX Given to Pt/Family Patient Instructions Follow up Appt: Make appointment for 1 week. [phone] Instructions: No lifting greater than 10 pounds. No strenuous activity. May shower in 24 hours, no tub bath or soaking. Use incentive spirometer at home as directed. No Smoking Skin/Wound Care: May remove bandages. You need to leave the white strips over incision on they will fall off on their own. Symptoms to Report: Appetite Changes, Extremity Discoloration, Numbness/Tingling, Swelling Increased , Bleeding Excessive, Eyesight Changes, Pain Increased, Urine Color Change, Constipation(Persistent), Fever over 101 degree F, Pain/Pressure in chest, Urinating Difficulty, Cough Up/Vomit Blood, Heart Beat Irreg/Pounding, Pain/ Pressure in jaw, Vaginal Bleeding Increase, Cramps in feet or legs, Lightheadedness, Pain/Pressure in shoulder, Diarrhea(Persistent), Memory Changes Suddenly, Questions/Concerns, Weight gain consecutive days, Dizziness/ Fainting, Nausea/Vomiting, Shortness of Breath, Weight gain over 2 pounds If questions or concerns contact your physician Or seek help at emergency department. Activity Activity Instructions: Avoid Pulling & Pushing, Avoid Stress to Incision Driving Instructions: No Driving/Refer to Dr. Mcclure Diet After 24 Hours: Clear Liquid if Nauseous If Any Problems/Questions/Issu: Contact Your Physician, Go to Emergency Room Skin/Wound Care Infection Signs and Symptoms: Increased Redness, Foul Odor of Wound, Increased Drainage, Skin Itchy or Has a Rash, Increased Swelling, Temperature Above 101 F Bathing Instructions: Shower Stitches/[place]/Dermabond Dis: Care of [place] Ice Pack: Ice On and Off Site NAVJOT TAPIA DO Aug 08, 2016 11:40
--- NOTE | 2016-08-08 11:43 | Progress Note ---
Subjective Time Seen by Provider: 10:49 Subjective/Events-last exam Pt had small BM last night. States pain is slightly better. Tolerating diet with N/V. Review of Systems General: No Chills, No Night Sweats Pulmonary: No Cough Cardiovascular: No: Chest Pain Objective Exam Vital Signs Date Time Temp Pulse Resp B/P (MAP) Pulse Ox O2 Delivery O2 Flow Rate FiO2 08/08/16 07:50 98.3 60 20 114/73 97 Room Air 08/08/16 03:55 98.0 64 18 107/68 96 Room Air 08/07/16 23:45 98.9 57 20 117/71 98 Room Air 08/07/16 16:50 98.0 57 18 111/72 98 Room Air 08/07/16 12:35 98.0 58 20 94/54 97 Room Air I & O 08/08/16 07:00 Intake Total 2800 ml Output Total 300 ml Balance 2500 ml Capillary Refill : Less Than 3 Seconds General Appearance: No Apparent Distress, WD/WN Respiratory: Lungs Clear Cardiovascular: Regular Rate, Rhythm Gastrointestinal: other (incision c/d/i) Assessment/Plan Assessment/Plan Assessment/Plan S/P Hand assisted Lap Sigmoid Resection DC IV, DC home Clinical Quality Measures DVT/VTE Risk/Contraindication: Risk Factor Score Per Nursin RFS Level Per Nursing on Admit: 2=Moderate NAVJOT TAPIA DO Aug 08, 2016 11:43
[2016-08-08 14:11] VITALS: BP 114/73
--- NOTE | 2016-08-09 09:27 | OPERATIVE REPORT ---
PROCEDURE PHYSICIAN: NAVJOT TENORIO DATE OF PROCEDURE: 08/06/2016 PREOPERATIVE DIAGNOSIS: Chronic diverticulitis. POSTOPERATIVE DIAGNOSIS: Chronic diverticulitis. PROCEDURE: Hand-assisted laparoscopic sigmoid colon resection with primary anastomosis. SURGEON: Dr. Tenorio WILDLIFE REHABILITATOR: Dr. Wise. ANESTHESIA: General endotracheal tube. SPECIMEN: Portion of sigmoid colon. BLOOD LOSS: Less than 20 mL. FLUIDS: Per anesthesia. POSTOPERATIVE: Stable. INDICATION FOR THE PROCEDURE: The patient is a 35-year-old who has attacks of diverticulitis. He has been on antibiotics, starting to effect his daily living and wanted to have what was recommended to get a procedure before he had to have a colostomy and he is agreeable to this. FINDINGS: The patient had a very firm area of sigmoid colon with a couple small diverticula up above this. This was removed and sent to pathology. PROCEDURE NOTE: After informed consent was obtained, the patient was brought to the operating room, placed on in the supine position. He was sterilely prepped and draped in the normal fashion. Ioban placed. A curvilinear incision was made starting just above the umbilicus to going just below this. About a 5 to 6 cm incision made with a number 10 blade after infiltrating the skin with local, carried down through the skin into subcutaneous tissue, then deepened down the subcutaneous tissue with Bovie electrocautery down to the fascia. The fascia incised with Bovie electrocautery. Entered the abdomen and then increased superiorly and inferiorly this incision to about 5 cm. Then placed a wound protector and then placed a gel port. Insufflated to get some air into the abdomen and then placed a camera and then under direct visualization placed two 12 mm VersaStep ports in the right lower quadrant. One about an inch about the ASIS and one about even with the umbilicus, again using local lidocaine, 11 blade for the stab incision and VersaStep system all done under direct visualization. The patient was then placed slightly Trendelenburg. Left hand was in the gel port. Working port was the right lower quadrant lowest port. Able to grasp the sigmoid and do a little bit of blunt dissection and then came up along the left paracolic gutter along the white line of Toldt freeing up the sigmoid colon, freeing the adhesions with LigaSure clamping, coagulating and transecting in this fashion carefully freeing this up. Once this was freed up, then went back down to just below the firm portion of the colon and using LigaSure grasp the mesentery, clamped, coagulating and transecting and I then gently am able to make hole in the mesentery. Switched to the Endo TAIWO. Endo TAIWO 60 brought across the medium vascular lobes brought in and across the sigmoid colon, clamped held for 30 seconds then fired, held for 20 seconds and then resected. Then using LigaSure coming across up mesentery, clamping, coagulating and transecting in this fashion going up past this firm area of sigmoid colon. Once I had gotten up above here and had freed up the sigmoid colon, I elected to see if we could pull this through the gel port. The gel port was removed and pulled this piece of intestine up above the abdominal wall. It actually came out very easily. I elected to use a TAIWO 55, the blue load. Brought across the colon, clamped across a good portion of colon, held for 30 seconds then fired, held for 20 seconds and then removed and passed the specimen off the table. Able to reach in and grasp the distal portion of the sigmoid. This actually also came easily above the abdominal wall so this allowed us to do an end-to-end anastomosis. Made a defect in the tenia of either side of the colon. Placed the TAIWO 55 into the colon and clamped and then while this was held, threw a crotch stitch of 3-0 Vicryl and then fired the stapling device thereby created a [id number] functional end-to-end anastomosis. It held nicely. Then held the colostomy opening with Allis' and then placed a TA 75 across and fired thereby closing this hole. Then oversewed this hole with 3-0 Vicryl pop offs and then sewed some epiploica and fat over this to protect it. Then another 3-0 Vicryl pop-off closed the mesenteric defect with a running stitch. It closed nicely. Dropped this back into the abdomen. Did not appear to be any kinks and there was no stress or tension on the anastomosis. Put the gel port back on and then looked in, had a sponge in there to cleaned up some of the blood from the ____. There was no bleeding in the . Everything looked good and then ____ over the ___. The ____ was then removed ____. Then removed the VersaStep ports both off the subfloor and then closed the ____. Then grasped the fascia and closed the fascia with a midline incision with a 1 double-stranded PDS suture running from superior portion and inferior portion and tying to itself, irrigating the incision with normal saline and then closing the midline incision, as well as the two 12 mm incisions with michael. The area was clean and dried and pressure dressing placed. The patient was then transferred to recovery room in stable condition. Sponge, needle and instrument counts were correct at the end of the case. Dr. Wise was the case management assistant. He assisted in this case helping to place ports, open incisions and then to close the incision as well as identify anatomy, and help the end of the case. Job ID: [id number] Dictated Date: 08/07/2016 15:03:16 Paint Mixer Hand Date: 08/09/2016 08:48:32 / rashid CASTANEDA
== END 2016-08-08 12:17 | disposition home or self-care (01) | DRG 331 ==
LOC: 4TH 09:47 → SURG 09:48 → 4TH 16:20
PROVIDERS: ADMIT Surgery; ATTEND Surgery
PROC: 0DTN4ZZ Resection of Sigmoid Colon, Percutaneous Endoscopic Approach (ICD-10-PCS; principal; 2016-08-06 13:40)
DX: K57.32 Diverticulitis of large intestine without perforation or abscess without bleeding (principal)
CPT/HCPCS: 36415; 80053; 85025; 86850; 86900; 86901; 94664

== ENCOUNTER 2017-11-18 08:24 | Inpatient (IN) | payer OTHER ==
[~2017-11-18] VITALS: Ht 165.1 cm; Wt 88.7 kg
[~2017-11-18 08:24] MED LIST changes: +ACHD5005 PO; +CIPR500S2 PO; +[UNRECOGNIZED DRUG - OTHER]
[2017-11-18] MEDS ORDERED: fentaNYL INJECTION 100 MCG/2 ML AMP IVP STA (08:42)
[2017-11-18] MEDS ORDERED: NS IV 1000 ML 1,000 ML IV STA (08:42)
[2017-11-18] MEDS ORDERED: ONDANSETRON 4 MG/2 ML (SDV) Z0FRAN IVP ONE (08:45)
--- NOTE | 2017-11-18 08:46 | ED Abdominal Pain ---
General Stated Complaint: ABD PAIN Source of Information: Patient Exam Limitations: Language Barrier History of Present Illness Date Seen by Provider: Nov 18, 2017 Time Seen by Provider: 08:25 Initial Comments Here with report of left-sided abdominal pain that has been going on for a week. Worse this morning. Patient is Yi-speaking and information via hourly sign language interpreter line. Does have history of diverticulitis and had surgery last year for it. He denies vomiting but there is mild nausea. Reports chills this morning but no reported fever. Last ate yesterday and had a little juice this morning. Has tried Tylenol and ibuprofen for the pain which is not working. Reports pain 10 out of 10 currently. Denies diarrhea or problems with bowel movements. Denies blood in urine or stool. Timing/Duration: 1 Week Severity/Quality: Moderate, Aching Location: LUQ, LLQ Radiation: No Radiation Activities at Onset: None Modifying Factors: Worsens With Analgesics, Worsens With Eating, Worsens With Movement Associated Symptoms: No Back Pain, No Chest Pain, No Swelling/Mass in Abdomen, No Weakness Allergies and Home Medications Allergies Coded Allergies: No Known Drug Allergies (Unverified , 06/13/11) Home Medications No Active Prescriptions or Reported Meds Patient Home Medication List Home Medication List Reviewed: Yes Review of Systems Review of Systems Constitutional: see HPI; No chills, No fever EENTM: No Symptoms Reported Respiratory: Denies Cough, Denies Shortness of Air, Denies Wheezing; Other ( pain with deep breathing to the left upper quadrant abdomen.) Gastrointestinal: See HPI, Abdominal Pain, Nausea; Denies Vomiting Genitourinary: No Symptoms Reported Musculoskeletal: no symptoms reported Skin: no symptoms reported All Other Systems Reviewed Negative Unless Noted: Yes Past Ntdbukw-Jimepi-Wjimht Hx Past Med/Social Hx: Reviewed Nursing Past Med/Soc Hx Patient Social History Alcohol Use: Denies Use 2nd Hand Smoke Exposure: No Recent Hopitalizations: No Seasonal Allergies Seasonal Allergies: No Past Medical History Surgeries: No Respiratory: No Cardiac: No Neurological: No Genitourinary: No Gastrointestinal: Yes Gastroesophageal Reflux, Diverticulosis Musculoskeletal: No Endocrine: No HEENT: No Cancer: No Psychosocial: No Integumentary: No Blood Disorders: No Adverse Reaction/Blood Tranf: No Family Medical History Reviewed Nursing Family Hx Not obtainable due to adoption (NO HX- DUE TO ADOPTION) No Pertinent Family Hx, Diabetes Physical Exam Vital Signs Vital Signs - First Documented 11/18/17 08:30 Temp 98.1 Pulse 82 Resp 18 B/P (MAP) 141/96 (111) Pulse Ox 99 Capillary Refill : Height/Weight/BMI Height: 5'3.00" Weight: 190lbs. 0.0oz. [id number]; 33.7 BMI Method:Estimated General Appearance: WD/WN, no apparent distress HEENT: PERRL/EOMI, pharynx normal Neck: full range of motion, supple Respiratory: lungs clear, normal breath sounds Cardiovascular: regular rate, rhythm, no murmur Gastrointestinal: soft, tenderness (left abdomen at the junction of the upper and lower quadrant and near lateral aspect) Extremities: non-tender, normal inspection Back: normal inspection, no CVA tenderness, no vertebral tenderness Neurologic/Psychiatric: alert, oriented x 3 Skin: normal color, warm/dry Lymphatic: no adenopathy Focused Exam Lactate Level 11/18/17 08:50: Lactic Acid Level 1.68 Lactic Acid Level Laboratory Tests Test 11/18/17 08:50 Lactic Acid Level 1.68 MMOL/L (0.50-2.00) Progress/Results/Core Measures Results/Orders Lab Results Laboratory Tests Test 11/18/17 08:50 11/18/17 09:05 Range/Units White Blood Count 12.8 H 4.3-11.0 10^3/uL Red Blood Count 5.26 4.35-5.85 10^6/uL Hemoglobin 16.3 13.3-17.7 G/DL Hematocrit 46 40-54 % Mean Corpuscular Volume 88 80-99 FL Mean Corpuscular Hemoglobin 31 25-34 PG Mean Corpuscular Hemoglobin Concent 35 32-36 G/DL Red Cell Distribution Width 13.3 10.0-14.5 % Platelet Count 233 130-400 10^3/uL Mean Platelet Volume 10.7 H 7.4-10.4 FL Neutrophils (%) (Auto) 72 42-75 % Lymphocytes (%) (Auto) 14 12-44 % Monocytes (%) (Auto) 9 0-12 % Eosinophils (%) (Auto) 5 0-10 % Basophils (%) (Auto) 0 0-10 % Neutrophils # (Auto) 9.2 H 1.8-7.8 X 10^3 Lymphocytes # (Auto) 1.8 1.0-4.0 X 10^3 Monocytes # (Auto) 1.1 H 0.0-1.0 X 10^3 Eosinophils # (Auto) 0.7 H 0.0-0.3 10^3/uL Basophils # (Auto) 0.0 0.0-0.1 10^3/uL Sodium Level 137 135-145 MMOL/L Potassium Level 3.5 L 3.6-5.0 MMOL/L Chloride Level 104 98-107 MMOL/L Carbon Dioxide Level 21 21-32 MMOL/L Anion Gap 12 5-14 MMOL/L Blood Urea Nitrogen 15 7-18 MG/DL Creatinine 0.67 0.60-1.30 MG/DL Estimat Glomerular Filtration Rate > 60 BUN/Creatinine Ratio 22 Glucose Level 109 H 70-105 MG/DL Lactic Acid Level 1.68 0.50-2.00 MMOL/L Calcium Level 9.0 8.5-10.1 MG/DL Corrected Calcium 8.6 8.5-10.1 MG/DL Total Bilirubin 2.2 H 0.1-1.0 MG/DL Aspartate Amino Transf (AST/SGOT) 37 H 5-34 U/L Alanine Aminotransferase (ALT/SGPT) 93 H 0-55 U/L Alkaline Phosphatase 101 40-136 U/L C-Reactive Protein High Sensitivity 4.75 H 0.00-0.50 MG/DL Total Protein 7.5 6.4-8.2 GM/DL Albumin 4.5 3.2-4.5 GM/DL Urine Color YELLOW Urine Clarity CLEAR Urine pH 6 5-9 Urine Specific [place] 1.015 L 1.016-1.022 Urine Protein NEGATIVE NEGATIVE Urine Glucose (UA) NEGATIVE NEGATIVE Urine Ketones NEGATIVE NEGATIVE Urine Nitrite NEGATIVE NEGATIVE Urine Bilirubin NEGATIVE NEGATIVE Urine Urobilinogen NORMAL NORMAL MG/DL Urine Leukocyte Esterase NEGATIVE NEGATIVE Urine RBC (Auto) NEGATIVE NEGATIVE Urine RBC NONE /HPF Urine WBC NONE /HPF Urine Squamous Epithelial Cells RARE /HPF Urine Crystals NONE /LPF Urine Bacteria NEGATIVE /HPF Urine Casts NONE /LPF Urine Mucus NEGATIVE /LPF Urine Culture Indicated NO My Orders Orders - CHARLY THOMPSON MD Cbc With Automated Diff (11/18/17 08:42) Comprehensive Metabolic Panel (11/18/17 08:42) Hs C Reactive Protein (11/18/17 08:42) Ua Culture If Indicated (11/18/17 08:42) Ondansetron Injection (Zofran Injectio (11/18/17 08:45) Ns Iv 1000 Ml (Sodium Chloride 0.9%) (11/18/17 08:42) Saline Lock/Iv-Start (11/18/17 08:42) Fentanyl Injection (Sublimaze Injection (11/18/17 08:42) Blood Culture (11/18/17 08:46) Lactic Acid Analyzer (11/18/17 08:46) Ct Abd/Pelv W (Appendicitis) (11/18/17 09:49) Iohexol Injection (Omnipaque 350 Mg/Ml 1 (11/18/17 10:15) Ns (Ivpb) (Sodium Chloride 0.9%) (11/18/17 10:15) Contrast Received (Contrast Received) (11/18/17 10:15) Medications Given in ED Current Medications Medications Dose Ordered Sig/Blade Route Start Time Stop Time Status Last Admin Dose Admin Iohexol 100 ml ONCE ONCE IV 11/18/17 10:15 11/18/17 10:16 DC 11/18/17 10:15 100 ML Ondansetron HCl 4 mg ONCE ONCE IVP 11/18/17 08:45 11/18/17 08:46 DC 11/18/17 09:01 4 MG Sodium Chloride 250 ml ONCE ONCE IV 11/18/17 10:15 11/18/17 10:16 DC 11/18/17 10:15 80 ML Vital Signs/I&O 11/18/17 08:30 Temp 98.1 Pulse 82 Resp 18 B/P (MAP) 141/96 (111) Pulse Ox 99 Progress Progress Note : Progress Note Seen and evaluated. IV, labs, UA, normal saline 1 L bolus, Zofran 4 mg IV and fentanyl 75 g IV. We will get CT abdomen and pelvis after evaluation of any function and UA. Monitor patient. 1100: CT complete. Patient more comfortable after pain medicines. I did discuss the case with Dr. Carr and he is seen the patient in the emergency department. He will admit the patient for acute diverticulitis complicated by previous surgery due to severity of disease. Inpatient status. Patient agrees to plan. Diagnostic Imaging Diagonstic Imaging: CT Plain Films/CT/US/NM/MRI: abdomen, pelvis Comments NAME: KYLIE GRANADOS [facility] REC#: [id number] PT STATUS: REG ER : 1980 PHYSICIAN: CHARLY THOMPSON MD ADMIT DATE: 11/18/17/ER Draft Date of Exam:11/18/17 CT ABD/PELV W (APPENDICITIS) PROCEDURE: CT abdomen and pelvis with contrast, rule out appendicitis. TECHNIQUE: Multiple contiguous axial images were obtained through the abdomen and pelvis after the administration of intravenous contrast. INDICATION: Left-sided pain The previous CT abdomen/pelvis exam of 01/02/2017 noted distortion of the pericolic fat adjacent to the descending colon near the junction of the descending colon and sigmoid anastomosis. These findings are felt to be secondary to diverticulitis/colitis. On this exam, there is again evidence of distortion of the pericolonic fat in this region. This would signify recurrent diverticulitis/colitis. There is still no sign of a diverticular mass or abscess. The anastomosis of the sigmoid colon seen previously is undisturbed. There is no pelvic mass or free fluid collection noted. The prostate gland and urinary bladder are grossly unremarkable. The appendix was visualized and is not abnormally thickened. As noted on the prior exam, the liver is of lower density than usually seen. This does suggest fatty metamorphosis. The spleen, pancreas, adrenals, gallbladder, kidneys, aorta and inferior vena cava are unremarkable for an acute abnormality. The stomach is not well-distended and consequently difficult to assess. The lung bases are clear. The bone windows are unremarkable for a fracture or for a destructive lesion. IMPRESSION: 1. There is recurrent diverticulitis/colitis of the descending colon. There is no sign of a diverticular mass or abscess. 2. There is no acute abnormality of the abdomen or pelvis noted otherwise. 3. These results were discussed with Dr. Thompson in the ER. Dictated on workstation # [id number] Dict: 11/18/17 1035 Trans: 11/18/17 1049 RAIN [id number] Interpreted by: FIDE YANG MD Electronically signed by: Departure Communication (Admissions) Time/Spoke to Admitting Phy: 11:00 Impression Primary Impression: Diverticulitis of intestine Qualified Codes: K57.32 - Diverticulitis of large intestine without perforation or abscess without bleeding Disposition: ADMITTED INPATIENT Condition: Stable Admissions Decision to Admit Reason: Admit from ER (General) Decision to Admit/Date: Nov 18, 2017 Time/Decision to Admit Time: 11:00 Departure-Patient Inst. Referrals: [facility] (PCP/Family) Primary Care Physician Scripts No Active Prescriptions or Reported Meds CHARLY THOMPSON MD Nov 18, 2017 08:46
[2017-11-18 08:58] LABS: BASOPHILS % (AUTO) 0 % (0-10); EOSINOPHILS # (AUTO) 0.7 10^3/uL (0.0-0.3); EOSINOPHILS % (AUTO) 5 % (0-10); HEMATOCRIT 46 % (40-54); HEMOGLOBIN 16.3 G/DL (13.3-17.7); LYMPHOCYTES # (AUTO) 1.8 X 10^3 (1.0-4.0); LYMPHOCYTES % (AUTO) 14 % (12-44); MEAN CORPUSCULAR HEMOGLOBIN 31 PG (25-34); MEAN CORPUSCULAR HGB CONC 35 G/DL (32-36); MEAN CORPUSCULAR VOLUME 88 FL (80-99); MEAN PLATELET VOLUME 10.7 FL (7.4-10.4); MONOCYTES # (AUTO) 1.1 X 10^3 (0.0-1.0); MONOCYTES % (AUTO) 9 % (0-12); NEUTROPHILS # (AUTO) 9.2 X 10^3 (1.8-7.8); NEUTROPHILS % (AUTO) 72 % (42-75); PLATELET COUNT 233 10^3/uL (130-400); RED BLOOD COUNT 5.26 10^6/uL (4.35-5.85); RED CELL DISTRIBUTION WIDTH 13.3 % (10.0-14.5); WHITE BLOOD COUNT 12.8 10^3/uL (4.3-11.0)
[2017-11-18 09:13] LABS: BILIRUBIN,URINE NEGATIVE (NEGATIVE); CLARITY,URINE CLEAR; COLOR,URINE YELLOW; GLUCOSE, URINE (UA) NEGATIVE (NEGATIVE); KETONES,URINE NEGATIVE (NEGATIVE); LEUKOCYTE ESTERASE ,URINE NEGATIVE (NEGATIVE); NITRITE,URINE NEGATIVE (NEGATIVE); PH,URINE 6 (5-9); PROTEIN,URINE NEGATIVE (NEGATIVE); UROBILINOGEN,URINE NORMAL (NORMAL)
[2017-11-18 09:20] LABS: ALANINE AMINOTRANSFERASE 93 U/L (0-55); ALBUMIN 4.5 GM/DL (3.2-4.5); ALKALINE PHOSPHATASE 101 U/L (40-136); BILIRUBIN,TOTAL 2.2 MG/DL (0.1-1.0); BUN/CREATININE RATIO 22; CARBON DIOXIDE 21 MMOL/L (21-32); CHLORIDE 104 MMOL/L (98-107); CREATININE SERUM 0.67 MG/DL (0.60-1.30); GFR ESTIMATED > 60; GLUCOSE 109 MG/DL (70-105); POTASSIUM 3.5 MMOL/L (3.6-5.0); SODIUM 137 MMOL/L (135-145); TOTAL PROTEIN 7.5 GM/DL (6.4-8.2)
[2017-11-18 09:27] LABS: BACTERIA,URINE NEGATIVE /HPF; SQUAMOUS EPITHELIAL CELL,UR RARE /HPF
[2017-11-18] MEDS ORDERED: RECEIVED CONTRAST (Hold Metformin) IV SCH (10:15)
[2017-11-18] MEDS ORDERED: IOHEXOL 350 MG/ML 100 ML (OMNIPAQUE 350) VIAL IV ONE (10:15)
[2017-11-18] MEDS ORDERED: NS 250 ML (IVPB) BAG IV ONE (10:15)
--- NOTE | 2017-11-18 10:50 | Diagnostic Imaging Report ---
PROCEDURE: CT abdomen and pelvis with contrast, rule out appendicitis. TECHNIQUE: Multiple contiguous axial images were obtained through the abdomen and pelvis after the administration of intravenous contrast. INDICATION: Left-sided pain The previous CT abdomen/pelvis exam of 01/02/2017 noted distortion of the pericolic fat adjacent to the descending colon near the junction of the descending colon and sigmoid anastomosis. These findings are felt to be secondary to diverticulitis/colitis. On this exam, there is again evidence of distortion of the pericolonic fat in this region. This would signify recurrent diverticulitis/colitis. There is still no sign of a diverticular mass or abscess. The anastomosis of the sigmoid colon seen previously is undisturbed. There is no pelvic mass or free fluid collection noted. The prostate gland and urinary bladder are grossly unremarkable. The appendix was visualized and is not abnormally thickened. As noted on the prior exam, the liver is of lower density than usually seen. This does suggest fatty metamorphosis. The spleen, pancreas, adrenals, gallbladder, kidneys, aorta and inferior vena cava are unremarkable for an acute abnormality. The stomach is not well-distended and consequently difficult to assess. The lung bases are clear. The bone windows are unremarkable for a fracture or for a destructive lesion. IMPRESSION: 1. There is recurrent diverticulitis/colitis of the descending colon. There is no sign of a diverticular mass or abscess. 2. There is no acute abnormality of the abdomen or pelvis noted otherwise. 3. These results were discussed with Dr. Rivas in the ER. Dictated by: Dictated on workstation # [id number]
[2017-11-18] MEDS ORDERED: ONDANSETRON 4 MG/2 ML (SDV) Z0FRAN IVP PRN (11:15)
[2017-11-18] MEDS ORDERED: morphine INJ 4 MG/ML 1 ML (VIAL/SYRINGE) IV PRN (11:15)
[2017-11-18 12:00] VITALS: BP 120/75
[2017-11-18] MEDS: LACTATED RINGERS 1,000 ML IV SCH ×2 (12:26→20:39)
[2017-11-18] MEDS ORDERED: FLU QUADRIvalent (5+ YOA) 2018-2019 (AFLURIA) 0.5 ML IM ONE (12:45)
[2017-11-18] MEDS: metroNIDAZOLE 500MG/100ML IVPB 100 ML IV SCH ×2 (14:39→22:20)
--- NOTE | 2017-11-18 15:56 | History & Physical-Surgical ---
History of Present Illness History of Present Illness Reason for visit/HPI HPI per ED: Here with report of left-sided abdominal pain that has been going on for a week. Worse this morning. Patient is Panamanian-speaking and information via speech language pathologist line. Does have history of diverticulitis and had surgery last year for it. He denies vomiting but there is mild nausea. Reports chills this morning but no reported fever. Last ate yesterday and had a little juice this morning. Has tried Tylenol and ibuprofen for the pain which is not working. Reports pain 10 out of 10 currently. Denies diarrhea or problems with bowel movements. Denies blood in urine or stool. Timing/Duration: 1 Week Severity/Quality: Moderate, Aching Location: LUQ, LLQ Radiation: No Radiation Activities at Onset: None Modifying Factors: Worsens With Analgesics, Worsens With Eating, Worsens With Movement Associated Symptoms: No Back Pain, No Chest Pain, No Swelling/Mass in Abdomen, No Weakness When I spoke to pt he rated the pain as about a 4 out of 10, the worst it got was 6-7. He states it has not moved and feels like previous episodes of Diverticulitis. He did not go to see primary physician about ABX when it started. Date of Admission Nov 18, 2017 at 11:13 Time Seen by a Provider: 10:46 I consulted on this patient on 11/18/17 15:48 Attending Physician Phillip Tenorio DO Admitting Physician [place] Consult Allergies and Home Medications Allergies Coded Allergies: No Known Drug Allergies (Unverified , 06/13/11) Home Medications No Active Prescriptions or Reported Meds Patient Home Medication List Home Medication List Reviewed: Yes Past Tsbshkk-Lwhncm-Dmnhbo Hx Patient Social History Alcohol Use: Denies Use Recreational Drug Use: No Smoking Status: Never a Smoker 2nd Hand Smoke Exposure: No Recent Foreign Travel: No Contact w/Someone Who Travel: No Recent Infectious Disease Expo: No Recent Hopitalizations: No Physical Abuse Screen: No Sexual Abuse: No Seasonal Allergies Seasonal Allergies: No Surgeries History of Surgeries: Yes (colonsurgery) Surgeries: Bowel Surgery (sigmoid colon resection) Respiratory History of Respiratory Disorde: No Cardiovascular History of Cardiac Disorders: No Neurological History of Neurological Disord: No Genitourinary History of Genitourinary Disor: No Gastrointestinal History of Gastrointestinal Di: Yes Gastrointestinal Disorders: Gastroesophageal Reflux, Diverticulosis Musculoskeletal History of Musculoskeletal Dis: No Endocrine History of Endocrine Disorders: No HEENT History of HEENT Disorders: No Cancer History of Cancer: No Psychosocial History of Psychiatric Problem: No Integumentary History of Skin or Integumenta: No Blood Transfusions History of Blood Disorders: No Adverse Reaction to a Blood Tr: No Family Medical History Significant Family History: No Pertinent Family Hx, Diabetes Family Medial History: Not obtainable due to adoption (NO HX- DUE TO ADOPTION) Review of Systems Constitutional: No chills, No diaphoresis, No fever EENTM: No blurred vision, No double vision, No mouth pain, No mouth swelling, No epistaxis, No throat swelling Respiratory: No cough, No dyspnea on exertion, No hemoptysis Cardiovascular: No chest pain, No edema, No palpitations Gastrointestinal: LUQ, LLQ; No constipation, No diarrhea, No hematemesis, No jaundice Genitourinary: No dysuria, No frequency, No hematuria Musculoskeletal: No back pain, No joint pain, No joint swelling, No muscle stiffness Skin: No change in color, No change in hair/nails Psychiatric/Neurological: Denies Anxiety, Denies Depressed, Denies Seizure, Denies Tingling Pt denies any abnormal bruising or bleeding, no heat of cold intolerance Physical Exam Vital Signs Vital Signs - First Documented 11/18/17 11/18/17 08:30 12:00 Temp 98.1 Pulse 82 Resp 18 B/P (MAP) 141/96 (111) Pulse Ox 99 O2 Delivery Room Air Capillary Refill : Less Than 3 Seconds Height, Weight, BMI Height: 5'5.00" Weight: 195lbs. 8.0oz. 88.788675kj; 32.5 BMI Method:Stated General Appearance: WD/WN, Mild Distress Eyes: Bilateral Eye PERRL, Bilateral Eye EOMI HEENT: Pharynx Normal, Moist Mucous Membranes; No Pale Conjunctivae (L), No Pale Conjunctivae (R), No Scleral Icterus (L), No Scleral Icterus (R) Neck: Full Range of Motion, Non Tender, Supple Respiratory: Chest Non Tender, Lungs Clear, Normal Breath Sounds, No Accessory Muscle Use, No Respiratory Distress Cardiovascular: Regular Rate, Rhythm, No Edema, No Murmur, Normal Peripheral Pulses Gastrointestinal: Normal Bowel Sounds, No Organomegaly, Soft, Guarding ( voluntary on left); No Rebound; Tenderness (LLQ and LUQ), Other (ventral incisional hernia, at umbilicus) Rectal: Deferred Back: No CVA Tenderness, No Vertebral Tenderness Extremity: Normal Capillary Refill, Normal Inspection, Normal Range of Motion, Non Tender, No Calf Tenderness, No Pedal Edema Neurologic/Psychiatric: Alert, Oriented x3, No Motor/Sensory Deficits, Normal Mood/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, 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 as Tested Skin: Normal Color, Warm/Dry Lymphatic: No Adenopathy (neck, axilla or groin) Data Review Labs Laboratory Tests 11/18/17 08:50: White Blood Count 12.8H, Red Blood Count 5.26, Hemoglobin 16.3, Hematocrit 46, Mean Corpuscular Volume 88, Mean Corpuscular Hemoglobin 31, Mean Corpuscular Hemoglobin Concent 35, Red Cell Distribution Width 13.3, Platelet Count 233, Mean Platelet Volume 10.7H, Neutrophils (%) (Auto) 72, Lymphocytes (%) (Auto) 14 , Monocytes (%) (Auto) 9, Eosinophils (%) (Auto) 5, Basophils (%) (Auto) 0, Neutrophils # (Auto) 9.2H, Lymphocytes # (Auto) 1.8, Monocytes # (Auto) 1.1H, Eosinophils # (Auto) 0.7H, Basophils # (Auto) 0.0, Sodium Level 137, Potassium Level 3.5L, Chloride Level 104, Carbon Dioxide Level 21, Anion Gap 12, Blood Urea Nitrogen 15, Creatinine 0.67, Estimat Glomerular Filtration Rate > 60, BUN/ Creatinine Ratio 22, Glucose Level 109H, Lactic Acid Level 1.68, Calcium Level 9.0, Corrected Calcium 8.6, Total Bilirubin 2.2H, Aspartate Amino Transf (AST/ SGOT) 37H, Alanine Aminotransferase (ALT/SGPT) 93H, Alkaline Phosphatase 101, C- Reactive Protein High Sensitivity 4.75H, Total Protein 7.5, Albumin 4.5 11/18/17 09:05: Urine Color YELLOW, Urine Clarity CLEAR, Urine pH 6, Urine Specific [place] 1.015L, Urine Protein NEGATIVE, Urine Glucose (UA) NEGATIVE, Urine Ketones NEGATIVE, Urine Nitrite NEGATIVE, Urine Bilirubin NEGATIVE, Urine Urobilinogen NORMAL, Urine Leukocyte Esterase NEGATIVE, Urine RBC (Auto) NEGATIVE, Urine RBC NONE, Urine WBC NONE, Urine Squamous Epithelial Cells RARE, Urine Crystals NONE , Urine Bacteria NEGATIVE, Urine Casts NONE, Urine Mucus NEGATIVE, Urine Culture Indicated NO Assessment/Plan Assessment/Plan Admission Diagonsis Acute Diverticulitis Incarcerated Ventral/Incisional hernia Admission Status: Inpatient Order (span 2 midnights) Reason for Inpatient Admission: Pt will need IV ABX for at least 2 days and then can switch to oral ABX, so will need to be in the hospital for days at least. We also need to wait until his pain is gone Assessment/Plan Acute Diverticulitis Incarcerated Ventral/Incisional hernia Patient will be admitted and made NPO, IV antibiotics, IV fluids, IV pain control and antiemetics as needed. Patient will need at least couple days of IV antibiotics and we can switch to oral pain medications will wait until his pain is gone and we can start him on oral diet. Until that he must remain nothing by mouth we are trying to make sure nothing goes past this area of inflammation to make a diverticulitis worse. He has localized pain and does not have a rigid abdomen; so this does not need surgery. Unfortunately patient has had a few episodes of his diverticulitis, even after we removed the portion of the colon that was bad. Therefore, he may need another resection to remove a little more of the diverticula of his colon. We do not need to discuss this at this time, we can talk more about it during the admission and as an outpatient. Patient had no other questions. Clinical Quality Measures DVT/VTE Risk/Contraindication: Risk Factor Score Per Nursin RFS Level Per Nursing on Admit: 2=Moderate PHILLIP TENORIO DO Nov 18, 2017 15:56
[2017-11-18 16:55] VITALS: BP 102/67
[2017-11-18] MEDS: morphine INJ 10 MG/ML 1ML (SYR OR VIAL) IVP PRN ×2 (18:13→20:21)
[2017-11-18 20:25] VITALS: BP 108/67
[2017-11-18] MEDS: CIPROFLOXACIN IV 400MG/200ML 200 ML IV SCH (20:40)
[2017-11-19 00:20] VITALS: BP 97/65
[2017-11-19 04:20] VITALS: BP 96/65
[2017-11-19] MEDS: metroNIDAZOLE 500MG/100ML IVPB 100 ML IV SCH ×3 (05:29→21:41)
[2017-11-19] MEDS: LACTATED RINGERS 1,000 ML IV SCH ×3 (05:32→21:15)
[2017-11-19] MEDS: morphine INJ 10 MG/ML 1ML (SYR OR VIAL) IVP PRN (05:36)
[2017-11-19 05:45] LABS: BASOPHILS % (AUTO) 0 % (0-10); EOSINOPHILS # (AUTO) 0.6 10^3/uL (0.0-0.3); EOSINOPHILS % (AUTO) 6 % (0-10); HEMATOCRIT 44 % (40-54); HEMOGLOBIN 15.3 G/DL (13.3-17.7); LYMPHOCYTES % (AUTO) 21 % (12-44); MEAN CORPUSCULAR HEMOGLOBIN 31 PG (25-34); MEAN CORPUSCULAR HGB CONC 35 G/DL (32-36); MEAN CORPUSCULAR VOLUME 89 FL (80-99); MEAN PLATELET VOLUME 10.7 FL (7.4-10.4); MONOCYTES # (AUTO) 0.9 X 10^3 (0.0-1.0); MONOCYTES % (AUTO) 9 % (0-12); NEUTROPHILS # (AUTO) 6.1 X 10^3 (1.8-7.8); NEUTROPHILS % (AUTO) 64 % (42-75); PLATELET COUNT 226 10^3/uL (130-400); RED BLOOD COUNT 4.91 10^6/uL (4.35-5.85); RED CELL DISTRIBUTION WIDTH 13.3 % (10.0-14.5); WHITE BLOOD COUNT 9.7 10^3/uL (4.3-11.0)
[2017-11-19 06:09] LABS: ALANINE AMINOTRANSFERASE 78 U/L (0-55); ALKALINE PHOSPHATASE 82 U/L (40-136); BILIRUBIN,TOTAL 2.6 MG/DL (0.1-1.0); BUN/CREATININE RATIO 14; CALCIUM 9.1 MG/DL (8.5-10.1); CARBON DIOXIDE 25 MMOL/L (21-32); CHLORIDE 104 MMOL/L (98-107); CREATININE SERUM 0.69 MG/DL (0.60-1.30); GFR ESTIMATED > 60; GLUCOSE 96 MG/DL (70-105); POTASSIUM 3.4 MMOL/L (3.6-5.0); SODIUM 139 MMOL/L (135-145); TOTAL PROTEIN 7.4 GM/DL (6.4-8.2)
[2017-11-19 08:00] VITALS: BP 108/71
[2017-11-19] MEDS: CIPROFLOXACIN IV 400MG/200ML 200 ML IV SCH ×2 (09:42→20:15)
[2017-11-19 12:00] VITALS: BP 113/70
--- NOTE | 2017-11-19 12:15 | Progress Note ---
Subjective Time Seen by a Provider: 11:51 Subjective/Events-last exam Pt seen and examined, spoke to him using the language line. He rates his pain as a 5 and thinks it is better than yesterday. He denies N/V. Still has some diarrhea. Review of Systems General: No Chills, No Night Sweats Pulmonary: No Dyspnea, No Cough Cardiovascular: No: Chest Pain, Palpitations Gastrointestinal: Abdominal Pain, Diarrhea; No: Nausea, Vomiting Focused Exam Lactate Level 11/18/17 08:50: Lactic Acid Level 1.68 Objective Exam Vital Signs Date Time Temp Pulse Resp B/P (MAP) Pulse Ox O2 Delivery O2 Flow Rate FiO2 11/19/17 08:00 98 Room Air 11/19/17 08:00 97.2 75 18 108/71 (83) 98 Room Air 11/19/17 04:20 97.6 74 20 96/65 (75) 98 Room Air 11/19/17 00:20 98.0 63 18 97/65 (76) 98 Room Air 11/18/17 20:25 98.4 70 20 108/67 (81) 96 Room Air 11/18/17 16:55 98.4 75 22 102/67 (79) 95 Room Air 11/18/17 12:14 99 Room Air I & O 11/19/17 07:00 Intake Total 3320 ml Balance 3320 ml Capillary Refill : Less Than 3 Seconds General Appearance: No Apparent Distress, WD/WN HEENT: Pharynx Normal, Moist Mucous Membranes; No Pale Conjunctivae (L), No Pale Conjunctivae (R), No Scleral Icterus (L), No Scleral Icterus (R) Neck: Full Range of Motion, Non Tender, Supple Respiratory: Chest Non Tender, Lungs Clear, Normal Breath Sounds, No Accessory Muscle Use, No Respiratory Distress Cardiovascular: Regular Rate, Rhythm, No Edema, No Murmur, Normal Peripheral Pulses Gastrointestinal: soft; No guarding, No rebound; tenderness (LLQ) Extremity: Normal Capillary Refill, Normal Inspection, Normal Range of Motion, Non Tender, No Calf Tenderness, No Pedal Edema Neurologic/Psychiatric: Alert, Oriented x3, No Motor/Sensory Deficits, Normal Mood/Affect, linux unix administrator II-XII Norm as Tested Skin: Normal Color, Warm/Dry Lymphatic: No Adenopathy (neck, axilla or groin) Results Lab Laboratory Tests 11/19/17 05:32: White Blood Count 9.7, Red Blood Count 4.91, Hemoglobin 15.3, Hematocrit 44, Mean Corpuscular Volume 89, Mean Corpuscular Hemoglobin 31, Mean Corpuscular Hemoglobin Concent 35, Red Cell Distribution Width 13.3, Platelet Count 226, Mean Platelet Volume 10.7H, Neutrophils (%) (Auto) 64, Lymphocytes (%) (Auto) 21 , Monocytes (%) (Auto) 9, Eosinophils (%) (Auto) 6, Basophils (%) (Auto) 0, Neutrophils # (Auto) 6.1, Lymphocytes # (Auto) 2.0, Monocytes # (Auto) 0.9, Eosinophils # (Auto) 0.6H, Basophils # (Auto) 0.0, Sodium Level 139, Potassium Level 3.4L, Chloride Level 104, Carbon Dioxide Level 25, Anion Gap 10, Blood Urea Nitrogen 10, Creatinine 0.69, Estimat Glomerular Filtration Rate > 60, BUN/ Creatinine Ratio 14, Glucose Level 96, Calcium Level 9.1, Corrected Calcium 9.1 , Total Bilirubin 2.6H, Aspartate Amino Transf (AST/SGOT) 35H, Alanine Aminotransferase (ALT/SGPT) 78H, Alkaline Phosphatase 82, Total Protein 7.4, Albumin 4.0 Assessment/Plan Assessment/Plan Assessment/Plan Acute Diverticulitis Incarcerated Ventral/Incisional hernia Patient still has LLQ pain; therefore, will keep him NPO, IV antibiotics, IV fluids, IV pain control and antiemetics as needed. Still must wait until his pain is gone and then we can start him on oral diet. Pt encouraged to ambulate and use IS, he can chew some gum if he needs. He had no questions. Unfortunately patient has had a few episodes of his diverticulitis, even after we removed the portion of the colon that was bad. Therefore, he may need another resection to remove a little more of the diverticula of his colon. This may be done in the future. Clinical Quality Measures DVT/VTE Risk/Contraindication: Risk Factor Score Per Nursin RFS Level Per Nursing on Admit: 2=Moderate NAVJOT TAPIA DO Nov 19, 2017 12:15
[2017-11-19 15:25] VITALS: BP 120/58
[2017-11-19 20:20] VITALS: BP 122/64
[2017-11-20] VITALS: BP 100/56
[2017-11-20] MEDS: LACTATED RINGERS 1,000 ML IV SCH ×2 (03:16→10:35)
[2017-11-20] MEDS: metroNIDAZOLE 500MG/100ML IVPB 100 ML IV SCH ×3 (05:47→21:48)
[2017-11-20 08:00] VITALS: BP 99/65
[2017-11-20] MEDS: CIPROFLOXACIN IV 400MG/200ML 200 ML IV SCH ×2 (08:18→20:30)
--- NOTE | 2017-11-20 10:27 | Progress Note ---
Subjective Time Seen by a Provider: 10:16 Subjective/Events-last exam Pt seen and examined, states his pain is almost gone and he is hungry. +flatus Review of Systems General: No Chills, No Night Sweats HEENT: No Head Aches, No Visual Changes Pulmonary: No Dyspnea, No Cough Cardiovascular: No: Chest Pain, Palpitations Gastrointestinal: Abdominal Pain; No: Nausea, Vomiting Focused Exam Lactate Level 11/18/17 08:50: Lactic Acid Level 1.68 Objective Exam Vital Signs Date Time Temp Pulse Resp B/P (MAP) Pulse Ox O2 Delivery O2 Flow Rate FiO2 11/20/17 08:00 97.2 70 18 99/65 (76) 98 Room Air 11/20/17 08:00 98 Room Air 11/20/17 00:00 97.4 52 20 100/56 (71) 97 Room Air 11/19/17 20:20 97.6 61 18 122/64 (83) 98 Room Air 11/19/17 15:25 97.6 57 18 120/58 (78) 98 Room Air 11/19/17 12:00 96.8 60 18 113/70 (84) 95 Room Air I & O 11/20/17 07:00 Intake Total 2700 ml Balance 2700 ml Capillary Refill : Less Than 3 Seconds General Appearance: No Apparent Distress, WD/WN HEENT: Pharynx Normal, Moist Mucous Membranes; No Pale Conjunctivae (L), No Pale Conjunctivae (R), No Scleral Icterus (L), No Scleral Icterus (R) Neck: Full Range of Motion, Non Tender, Supple Respiratory: Chest Non Tender, Lungs Clear, Normal Breath Sounds, No Accessory Muscle Use, No Respiratory Distress Cardiovascular: Regular Rate, Rhythm, No Edema, No Murmur, Normal Peripheral Pulses Gastrointestinal: soft; No guarding, No rebound; tenderness (LLQ much less compared to yesterday) Extremity: Normal Capillary Refill, Normal Inspection, Normal Range of Motion, Non Tender, No Calf Tenderness, No Pedal Edema Neurologic/Psychiatric: Alert, Oriented x3, No Motor/Sensory Deficits, Normal Mood/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 He can have antiemetics as needed. Pt encouraged to ambulate and use IS, he can chew some gum if he needs. He had no questions. Unfortunately patient has had a few episodes of his diverticulitis, even after we removed the portion of the colon that was bad. Therefore, he may need another resection to remove a little more of the diverticula of his colon. This may be done in the future. Clinical Quality Measures DVT/VTE Risk/Contraindication: Risk Factor Score Per Nursin RFS Level Per Nursing on Admit: 2=Moderate NAVJOT TAPIA DO Nov 20, 2017 10:27
[2017-11-20 15:42] VITALS: BP 107/66
[2017-11-20 23:40] VITALS: BP 105/56
[2017-11-21] MEDS: LACTATED RINGERS 1,000 ML IV SCH ×2 (03:07→11:52)
[2017-11-21 04:20] VITALS: BP 100/56
[2017-11-21] MEDS: metroNIDAZOLE 500MG/100ML IVPB 100 ML IV SCH (05:34)
[2017-11-21 08:31] VITALS: BP 113/71
[2017-11-21] MEDS: CIPROFLOXACIN IV 400MG/200ML 200 ML IV SCH (09:16)
--- NOTE | 2017-11-21 10:05 | Progress Note ---
Subjective Time Seen by a Provider: 09:56 Subjective/Events-last exam Pt seen and examined, denies pain, tolerating clears. Review of Systems General: No Chills, No Night Sweats Pulmonary: No Dyspnea, No Cough Cardiovascular: No: Chest Pain, Palpitations Gastrointestinal: No: Nausea, Vomiting, Abdominal Pain Objective Exam Vital Signs Date Time Temp Pulse Resp B/P (MAP) Pulse Ox O2 Delivery O2 Flow Rate FiO2 11/21/17 08:31 97.7 59 20 113/71 (85) 99 Room Air 11/21/17 04:20 97.0 52 18 100/56 (71) 97 Room Air 11/20/17 23:40 97.5 57 18 105/56 (72) 97 Room Air 11/20/17 15:42 97.6 58 18 107/66 (80) 99 Room Air I & O 11/21/17 07:00 Intake Total 4030 ml Balance 4030 ml Capillary Refill : Less Than 3 Seconds General Appearance: No Apparent Distress, WD/WN HEENT: Pharynx Normal, Moist Mucous Membranes; No Pale Conjunctivae (L), No Pale Conjunctivae (R), No Scleral Icterus (L), No Scleral Icterus (R) Neck: Full Range of Motion, Non Tender, Supple Respiratory: Chest Non Tender, Lungs Clear, Normal Breath Sounds, No Accessory Muscle Use, No Respiratory Distress Cardiovascular: Regular Rate, Rhythm, No Edema, No Murmur, Normal Peripheral Pulses Gastrointestinal: non tender, soft; No guarding, No rebound Neurologic/Psychiatric: Alert, Oriented x3, No Motor/Sensory Deficits, Normal Mood/Affect, 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 Unfortunately patient has had a few episodes of his diverticulitis, even after we removed the portion of the colon that was bad. Therefore, he may need another resection to remove a little more of the diverticula of his colon. This may be done in the future. Clinical Quality Measures DVT/VTE Risk/Contraindication: Risk Factor Score Per Nursin RFS Level Per Nursing on Admit: 2=Moderate NAVJOT TAPIA DO Nov 21, 2017 10:05
[2017-11-21] MEDS ORDERED: METR500T PO (10:08)
[2017-11-21] MEDS ORDERED: CIPR-225 PO (10:08)
--- NOTE | 2017-11-21 10:10 | Discharge Inst-Surgical ---
Discharge Inst-Surgical Depart Medication/Instructions New, Converted or Re-Newed RX: Transmitted to Pharmacy Patient Instructions Follow up Appt: Make appointment for 1 week. Symptoms to Report: Appetite Changes, Extremity Discoloration, Numbness/Tingling, Swelling Increased , Bleeding Excessive, Eyesight Changes, Pain Increased, Urine Color Change, Constipation(Persistent), Fever over 101 degree F, Pain/Pressure in chest, Urinating Difficulty, Cough Up/Vomit Blood, Heart Beat Irreg/Pounding, Pain/ Pressure in jaw,Cramps in feet or legs, Lightheadedness, Pain/Pressure in shoulder, Diarrhea(Persistent), Memory Changes Suddenly, Questions/Concerns, Weight gain consecutive days, Dizziness/Fainting, Nausea/Vomiting, Shortness of Breath, Weight gain over 2 pounds If questions or concerns contact your physician Or seek help at emergency department. Activity Activity as Tolerated: Yes Driving Instructions: You May Drive Diet Discharge Diet: Low Residue Diet After 24 Hours: Clear Liquid if Nauseous If Any Problems/Questions/Issu: Contact Your Physician Skin/Wound Care Infection Signs and Symptoms: Temperature Above 101 F NAVJOT TAPIA DO Nov 21, 2017 10:10
--- NOTE | 2017-11-21 10:18 | Discharge Summary ---
Diagnosis/Chief Complaint Date of Admission Nov 18, 2017 at 11:13 Date of Discharge Nov 21, 2017 Admission Diagnosis Admission Diagnosis Diverticulitis Discharge Diagnosis Same Reason Hospital Visit HPI per ED: Here with report of left-sided abdominal pain that has been going on for a week. Worse this morning. Patient is Thai-speaking and information via certified court/medical interpreter line. Does have history of diverticulitis and had surgery last year for it. He denies vomiting but there is mild nausea. Reports chills this morning but no reported fever. Last ate yesterday and had a little juice this morning. Has tried Tylenol and ibuprofen for the pain which is not working. Reports pain 10 out of 10 currently. Denies diarrhea or problems with bowel movements. Denies blood in urine or stool. Timing/Duration: 1 Week Severity/Quality: Moderate, Aching Location: LUQ, LLQ Radiation: No Radiation Activities at Onset: None Modifying Factors: Worsens With Analgesics, Worsens With Eating, Worsens With Movement Associated Symptoms: No Back Pain, No Chest Pain, No Swelling/Mass in Abdomen, No Weakness When I spoke to pt he rated the pain as about a 4 out of 10, the worst it got was 6-7. He states it has not moved and feels like previous episodes of Diverticulitis. He did not go to see primary physician about ABX when it started. Discharge Summary Procedures: none Discharge Physical Examination Allergies: Coded Allergies: No Known Drug Allergies (Unverified , 06/13/11) Vitals & I&Os Vital Signs Date Time Temp Pulse Resp B/P (MAP) Pulse Ox O2 Delivery O2 Flow Rate FiO2 11/21/17 08:31 97.7 59 20 113/71 (85) 99 Room Air General Appearance: Alert, Oriented X3 HEENT: PERRLA, EOMI Respiratory: Clear to Auscultation Cardiovascular: Regular Rate, No Murmurs Abdominal: Soft, No Tenderness, No Hepatosplenomegaly Hospital Course Pt presented on the with Diverticulitis and localized pain. He was treated conservatively with IV ABX and NPO. He slowly improved over the next few days in the hospital, was started on clears and tolerated those without worsening of pain. Pt then started on soft diet. On day of discharge pt had no pain. He was discharged in stable condition on the . Discharge Instructions to patient/family Please see electronic discharge instructions given to patient. Discharge Medications Reviewed and agree with Discharge Medication list on patient's Discharge Instruction sheet Clinical Quality Measures DVT/VTE Risk/Contraindication: Risk Factor Score Per Nursin RFS Level Per Nursing on Admit: 2=Moderate NAVJOT TAPIA DO Nov 21, 2017 10:18
== END 2017-11-21 13:46 | disposition home or self-care (01) | DRG 392 ==
LOC: EDUNIT# 08:24 → ER 08:25 → 4TH 11:13
PROVIDERS: ADMIT Surgery; ATTEND Surgery
DX: K57.32 Diverticulitis of large intestine without perforation or abscess without bleeding (principal); K43.0 Incisional hernia with obstruction, without gangrene; K21.9 Gastro-esophageal reflux disease without esophagitis; Z90.49 Acquired absence of other specified parts of digestive tract
CPT/HCPCS: 36415; 74177; 80053; 81000; 83605; 85025; 86141; 87040; 96361; 96374; 96375

== ENCOUNTER 2018-05-10 08:10 | Emergency (ER) | payer OTHER ==
[~2018-05-10] VITALS: Ht 160 cm; Wt 87.3 kg
[2018-05-10 09:16] LABS: BASOPHILS % (AUTO) 0 % (0-10); EOSINOPHILS # (AUTO) 0.6 10^3/uL (0.0-0.3); EOSINOPHILS % (AUTO) 6 % (0-10); HEMATOCRIT 48 % (40-54); HEMOGLOBIN 16.6 G/DL (13.3-17.7); LYMPHOCYTES # (AUTO) 1.9 X 10^3 (1.0-4.0); LYMPHOCYTES % (AUTO) 18 % (12-44); MEAN CORPUSCULAR HEMOGLOBIN 31 PG (25-34); MEAN CORPUSCULAR HGB CONC 34 G/DL (32-36); MEAN CORPUSCULAR VOLUME 89 FL (80-99); MEAN PLATELET VOLUME 11.1 FL (7.4-10.4); MONOCYTES # (AUTO) 0.9 X 10^3 (0.0-1.0); MONOCYTES % (AUTO) 9 % (0-12); NEUTROPHILS % (AUTO) 67 % (42-75); PLATELET COUNT 207 10^3/uL (130-400); RED CELL DISTRIBUTION WIDTH 13.3 % (10.0-14.5); WHITE BLOOD COUNT 10.5 10^3/uL (4.3-11.0)
[2018-05-10 09:17] LABS: BILIRUBIN,URINE NEGATIVE (NEGATIVE); CLARITY,URINE CLEAR; COLOR,URINE YELLOW; GLUCOSE, URINE (UA) NEGATIVE (NEGATIVE); KETONES,URINE NEGATIVE (NEGATIVE); LEUKOCYTE ESTERASE ,URINE NEGATIVE (NEGATIVE); NITRITE,URINE NEGATIVE (NEGATIVE); PH,URINE 6.5 (5-9); PROTEIN,URINE NEGATIVE (NEGATIVE); UROBILINOGEN,URINE NORMAL (NORMAL)
[2018-05-10] MEDS ORDERED: KETOROLAC 30 MG/ML VIAL IVP STA (09:17)
[2018-05-10] MEDS ORDERED: fentaNYL INJECTION 100 MCG/2 ML AMP IVP STA (09:17)
[2018-05-10] MEDS ORDERED: NS IV 1000 ML 1,000 ML IV SCH (09:17)
--- NOTE | 2018-05-10 09:29 | ED Abdominal Pain ---
General Chief Complaint: Abdominal/GI Problems Stated Complaint: RIGHT SIDE ABD PAIN Nursing Triage Note: PT STATES LT ABD PAIN FOR 3 DAYS. DENIES ANY DIFFICULTY URINATING OR WITH BM'S. Sepsis Screen: No Definite Risk Source of Information: Patient Exam Limitations: No Limitations History of Present Illness Date Seen by Provider: May 10, 2018 Time Seen by Provider: 09:10 Initial Comments Here with report of left-sided abdominal pain over the last 3 days. Not had anything like this before. Denies injury. Denies blood in his urine or stool. Denies fever, nausea or vomiting. Timing/Duration: 3-4 Days Severity/Quality: Moderate, Aching Location: LUQ, LLQ, Flank (left) Radiation: No Radiation Activities at Onset: None Modifying Factors: Worsens With Movement; Improves With Resting Associated Symptoms: No Back Pain, No Chest Pain, No Fever/Chills, No Nausea/ Vomiting, No Shortness of Air, No Swelling/Mass in Abdomen, No Weakness Allergies and Home Medications Allergies Coded Allergies: No Known Drug Allergies (Unverified , 06/13/11) Home Medications Ciprofloxacin HCl 500 Mg Tablet, 500 MG PO BID Prescribed by: NAVJOT TAPIA on 11/21/17 1008 Metronidazole 500 Mg Tablet, 500 MG PO TID Prescribed by: NAVJOT TAPIA on 11/21/17 1008 Patient Home Medication List Home Medication List Reviewed: Yes Review of Systems Review of Systems Constitutional: see HPI; No chills, No fever EENTM: No Symptoms Reported Respiratory: No Symptoms Reported Cardiovascular: No Symptoms Reported Gastrointestinal: See HPI, Abdominal Pain; Denies Nausea, Denies Vomiting Genitourinary: No Symptoms Reported Musculoskeletal: no symptoms reported Skin: no symptoms reported All Other Systems Reviewed Negative Unless Noted: Yes Past Nvzywjd-Lkqtrx-Kabwcf Hx Past Med/Social Hx: Reviewed Nursing Past Med/Soc Hx Patient Social History Alcohol Use: Denies Use Recreational Drug Use: No Smoking Status: Never a Smoker 2nd Hand Smoke Exposure: No Recent Foreign Travel: No Contact w/Someone Who Travel: No Recent Infectious Disease Expo: No Recent Hopitalizations: No Seasonal Allergies Seasonal Allergies: No Past Medical History Surgeries: Yes (colonsurgery) Abdominal, Bowel Surgery Respiratory: No Cardiac: No Neurological: No Genitourinary: No Gastrointestinal: Yes Gastroesophageal Reflux, Diverticulosis Musculoskeletal: No Endocrine: No HEENT: No Cancer: No Psychosocial: No Integumentary: No Blood Disorders: No Adverse Reaction/Blood Tranf: No Family Medical History Reviewed Nursing Family Hx Not obtainable due to adoption (NO HX- DUE TO ADOPTION) No Pertinent Family Hx, Diabetes Physical Exam Vital Signs Vital Signs - First Documented 05/10/18 08:43 Temp 97.5 Pulse 79 Resp 18 B/P (MAP) 133/90 (104) O2 Delivery Room Air Capillary Refill : Less Than 3 Seconds Height/Weight/BMI Height: 5'3.00" Weight: 192lbs. 8.0oz. [id number]; 32.5 BMI Method:Actual General Appearance: WD/WN, no apparent distress HEENT: PERRL/EOMI, pharynx normal Neck: full range of motion, supple Respiratory: lungs clear, normal breath sounds Cardiovascular: regular rate, rhythm, no murmur Gastrointestinal: soft; No guarding (lateral aspect), No rebound; tenderness Extremities: non-tender, normal inspection Back: normal inspection, no CVA tenderness, no vertebral tenderness Neurologic/Psychiatric: alert, oriented x 3 Skin: normal color, warm/dry Progress/Results/Core Measures Results/Orders Lab Results Laboratory Tests Test 05/10/18 09:05 05/10/18 09:10 Range/Units White Blood Count 10.5 4.3-11.0 10^3/uL Red Blood Count 5.43 4.35-5.85 10^6/uL Hemoglobin 16.6 13.3-17.7 G/DL Hematocrit 48 40-54 % Mean Corpuscular Volume 89 80-99 FL Mean Corpuscular Hemoglobin 31 25-34 PG Mean Corpuscular Hemoglobin Concent 34 32-36 G/DL Red Cell Distribution Width 13.3 10.0-14.5 % Platelet Count 207 130-400 10^3/uL Mean Platelet Volume 11.1 H 7.4-10.4 FL Neutrophils (%) (Auto) 67 42-75 % Lymphocytes (%) (Auto) 18 12-44 % Monocytes (%) (Auto) 9 0-12 % Eosinophils (%) (Auto) 6 0-10 % Basophils (%) (Auto) 0 0-10 % Neutrophils # (Auto) 7.0 1.8-7.8 X 10^3 Lymphocytes # (Auto) 1.9 1.0-4.0 X 10^3 Monocytes # (Auto) 0.9 0.0-1.0 X 10^3 Eosinophils # (Auto) 0.6 H 0.0-0.3 10^3/uL Basophils # (Auto) 0.0 0.0-0.1 10^3/uL Sodium Level 140 135-145 MMOL/L Potassium Level 3.9 3.6-5.0 MMOL/L Chloride Level 105 98-107 MMOL/L Carbon Dioxide Level 23 21-32 MMOL/L Anion Gap 12 5-14 MMOL/L Blood Urea Nitrogen 17 7-18 MG/DL Creatinine 0.65 0.60-1.30 MG/DL Estimat Glomerular Filtration Rate > 60 BUN/Creatinine Ratio 26 Glucose Level 103 70-105 MG/DL Calcium Level 8.8 8.5-10.1 MG/DL Corrected Calcium 8.5-10.1 MG/DL Total Bilirubin 1.9 H 0.1-1.0 MG/DL Aspartate Amino Transf (AST/SGOT) 34 5-34 U/L Alanine Aminotransferase (ALT/SGPT) 80 H 0-55 U/L Alkaline Phosphatase 101 40-136 U/L C-Reactive Protein High Sensitivity 3.64 H 0.00-0.50 MG/DL Total Protein 7.2 6.4-8.2 GM/DL Albumin 4.6 H 3.2-4.5 GM/DL Urine Color YELLOW Urine Clarity CLEAR Urine pH 6.5 5-9 Urine Specific [place] 1.015 L 1.016-1.022 Urine Protein NEGATIVE NEGATIVE Urine Glucose (UA) NEGATIVE NEGATIVE Urine Ketones NEGATIVE NEGATIVE Urine Nitrite NEGATIVE NEGATIVE Urine Bilirubin NEGATIVE NEGATIVE Urine Urobilinogen NORMAL NORMAL MG/DL Urine Leukocyte Esterase NEGATIVE NEGATIVE Urine RBC (Auto) NEGATIVE NEGATIVE Urine RBC NONE /HPF Urine WBC NONE /HPF Urine Squamous Epithelial Cells NONE /HPF Urine Crystals NONE /LPF Urine Bacteria NEGATIVE /HPF Urine Casts NONE /LPF Urine Mucus NEGATIVE /LPF Urine Culture Indicated NO My Orders Orders - CHARLY THOMPSON MD Saline Lock/Iv-Start (05/10/18 08:43) Cbc With Automated Diff (05/10/18 08:43) Comprehensive Metabolic Panel (05/10/18 08:43) Hs C Reactive Protein (05/10/18 08:43) Ua Culture If Indicated (05/10/18 08:43) Ct Abdomen/Pelvis W (05/10/18 09:17) Saline Lock/Iv-Start (05/10/18 09:17) Ns Iv 1000 Ml (Sodium Chloride 0.9%) (05/10/18 09:17) Fentanyl Injection (Sublimaze Injection (05/10/18 09:17) Ketorolac Injection (Toradol Injection) (05/10/18 09:17) Iohexol Injection (Omnipaque 350 Mg/Ml 1 (05/10/18 10:00) Contrast Received (Contrast Received) (05/10/18 10:00) Hydrocodone/Apap 7.5/325 Tab (Lortab 7. (05/10/18 11:46) Medications Given in ED Current Medications Medications Dose Ordered Sig/Blade Route Start Time Stop Time Status Last Admin Dose Admin Iohexol 100 ml ONCE ONCE IV 05/10/18 10:00 05/10/18 10:01 DC 05/10/18 10:09 100 ML Vital Signs/I&O 05/10/18 05/10/18 05/10/18 08:43 09:31 09:31 Temp 97.5 97.5 97.5 Pulse 79 Resp 18 B/P (MAP) 133/90 (104) O2 Delivery Room Air Blood Pressure Mean: 104 Progress Progress Note : Progress Note Seen and evaluated. IV, labs, UA, normal saline 1 L bolus, CT abdomen pelvis with contrast ordered. Toradol 30 mg IV and fentanyl 50 g IV ordered. Monitor patient. 1150: CT results noted. Patient with continued pain but better. Hydrocodone 7.5 mg by mouth given. At this point, patient can try outpatient therapy. I ran a by Dr. Wise and we will try that. We will initiate outpatient antibiotics and patient will stick to clear liquids and antibiotics at this point with follow-up with Dr. Tapia who is been his primary surgeon. Discharged home with return precautions. Patient verbalize understanding instructions and agreement with plan. Diagnostic Imaging Diagonstic Imaging: CT Plain Films/CT/US/NM/MRI: abdomen, pelvis Comments [facility]. [place], [place] NAME: JOHNNIE GRANADOSMARILU Guevara [facility] REC#: [id number] PT STATUS: REG ER : 1980 PHYSICIAN: CHARLY THOMPSON MD ADMIT DATE: 05/10/18/ER Draft Date of Exam:05/10/18 CT ABDOMEN/PELVIS W PROCEDURE: CT abdomen and pelvis with contrast. TECHNIQUE: Multiple contiguous axial images were obtained through the abdomen and pelvis after administration of intravenous contrast. Auto Exposure Controls were utilized during the CT exam to meet ALARA standards for radiation dose reduction. INDICATION: Left-sided pain x3 days. CORRELATION STUDY: 11/18/2017 FINDINGS: LOWER THORAX: Clear. LIVER: Presence of hepatic steatosis. No focal lesion. GALLBLADDER: Present and unremarkable. No bile duct dilatation. SPLEEN: Unremarkable. PANCREAS: Unremarkable. ADRENAL GLANDS: Unremarkable. KIDNEYS: Normal configuration. No calcification or obstruction. ABDOMINAL AORTA: Unremarkable, nonaneurysmal. GASTROINTESTINAL TRACT: Surgery change of the distal colon anastomotic suture line at the distal descending colon. Just proximal to this, is segmental wall thickening with rather pronounced inflammatory changes of the descending colon. Diffuse wall thickening present. There is question of potential inflamed diverticulum along the anterior aspect could be reflective of underlying acute diverticulitis. No significant abscess formation or perforation suggested at this time. This is noted to be in similar location to the previous episode of inflammation. A few additional scattered diverticula are present. Normal appendix in the right lower quadrant. No small bowel obstruction. URINARY BLADDER: Unremarkable. REPRODUCTIVE: Prostate gland unremarkable. OSSEOUS STRUCTURES: No acute abnormality. OTHER: None. IMPRESSION: 1. Findings suggestive of recurrent acute diverticulitis/colitis of the descending colon. Rather pronounced wall edema and localized inflammatory changes without evidence for abscess formation or significant perforation. It is noted this is in the same location as the previous episode of inflammation November 2017. 2. Hepatic steatosis. Dictated on workstation # [id number] Dict: 05/10/18 1032 Trans: 05/10/18 1108 [place] [id number] Interpreted by: EARNESTINE PEARSON DO Electronically signed by: Departure Impression Primary Impression: Diverticulitis of intestine Qualified Codes: K57.32 - Diverticulitis of large intestine without perforation or abscess without bleeding Disposition: 01 HOME, SELF-CARE Condition: Stable Departure-Patient Inst. Decision time for Depature: 11:55 Referrals: [facility] (PCP[facility]Family) Primary Care Physician Patient Instructions: Acute Abdomen (Belly Pain), Adult (DC), Diverticulitis ( DC) Add. Discharge Instructions: All discharge instructions reviewed with patient and/or family. Voiced understanding. Take medications as directed. Clear liquid diet for the next 24-48 hours and then advance as tolerated. Make appointment with Dr. Tapia to be seen within one week. Return for worse pain, fever, vomiting, blood in her stool or other concerns as needed. Scripts Hydrocodone Bit/Acetaminophen (LORTAB 7.5 MG TABLET) 1 Ea Tablet 1 EACH PO Q6H, #8 TAB 0 Refills Prov: CHARLY THOMPSON MD 05/10/18 Metronidazole (Metronidazole) 500 Mg Tablet 500 MG PO BID, #14 TAB 0 Refills Prov: CHARLY THOMPSON MD 05/10/18 Ciprofloxacin HCl (Ciprofloxacin HCl) 500 Mg Tablet 500 MG PO BID, #14 TAB Prov: CHARLY THOMPSON MD 05/10/18 Copy Copies To 1: NAVJOT TAPIA TIMOTHY D MD May 10, 2018 09:29
[2018-05-10 09:32] LABS: ALANINE AMINOTRANSFERASE 80 U/L (0-55); ALBUMIN 4.6 GM/DL (3.2-4.5); ALKALINE PHOSPHATASE 101 U/L (40-136); BILIRUBIN,TOTAL 1.9 MG/DL (0.1-1.0); BUN/CREATININE RATIO 26; CALCIUM 8.8 MG/DL (8.5-10.1); CARBON DIOXIDE 23 MMOL/L (21-32); CHLORIDE 105 MMOL/L (98-107); CREATININE SERUM 0.65 MG/DL (0.60-1.30); GFR ESTIMATED > 60; GLUCOSE 103 MG/DL (70-105); POTASSIUM 3.9 MMOL/L (3.6-5.0); SODIUM 140 MMOL/L (135-145); TOTAL PROTEIN 7.2 GM/DL (6.4-8.2)
[2018-05-10 09:32] LABS: BACTERIA,URINE NEGATIVE /HPF
[2018-05-10] MEDS ORDERED: IOHEXOL 350 MG/ML 100 ML (OMNIPAQUE 350) VIAL IV ONE (10:00)
[2018-05-10] MEDS ORDERED: HOLD METFORMIN - RECEIVED CONTRAST 20 ML VIAL IV SCH (10:00)
--- NOTE | 2018-05-10 11:09 | Diagnostic Imaging Report ---
PROCEDURE: CT abdomen and pelvis with contrast. TECHNIQUE: Multiple contiguous axial images were obtained through the abdomen and pelvis after administration of intravenous contrast. Auto Exposure Controls were utilized during the CT exam to meet ALARA standards for radiation dose reduction. INDICATION: Left-sided pain x3 days. CORRELATION STUDY: 11/18/2017 FINDINGS: LOWER THORAX: Clear. LIVER: Presence of hepatic steatosis. No focal lesion. GALLBLADDER: Present and unremarkable. No bile duct dilatation. SPLEEN: Unremarkable. PANCREAS: Unremarkable. ADRENAL GLANDS: Unremarkable. KIDNEYS: Normal configuration. No calcification or obstruction. ABDOMINAL AORTA: Unremarkable, nonaneurysmal. GASTROINTESTINAL TRACT: Surgery change of the distal colon anastomotic suture line at the distal descending colon. Just proximal to this, is segmental wall thickening with rather pronounced inflammatory changes of the descending colon. Diffuse wall thickening present. There is question of potential inflamed diverticulum along the anterior aspect could be reflective of underlying acute diverticulitis. No significant abscess formation or perforation suggested at this time. This is noted to be in similar location to the previous episode of inflammation. A few additional scattered diverticula are present. Normal appendix in the right lower quadrant. No small bowel obstruction. URINARY BLADDER: Unremarkable. REPRODUCTIVE: Prostate gland unremarkable. OSSEOUS STRUCTURES: No acute abnormality. OTHER: None. IMPRESSION: 1. Findings suggestive of recurrent acute diverticulitis/colitis of the descending colon. Rather pronounced wall edema and localized inflammatory changes without evidence for abscess formation or significant perforation. It is noted this is in the same location as the previous episode of inflammation November 2017. 2. Hepatic steatosis. Dictated by: Dictated on workstation # [id number]
[2018-05-10] MEDS ORDERED: HYDROcodone/APAP 7.5 MG/325 MG (LORTAB, LORCET PLUS) TABLET PO STA (11:46)
[2018-05-10] MEDS ORDERED: HYDR-34 PO (11:57)
[2018-05-10] MEDS ORDERED: CIPR500T4 PO (11:57)
[2018-05-10] MEDS ORDERED: METR-145 PO (11:57)
[2018-05-10 12:20] VITALS: BP 116/74
== END 2018-05-10 12:20 | disposition home or self-care (01) ==
LOC: EDUNIT# 08:10 → ER 08:15
DX: K57.32 Diverticulitis of large intestine without perforation or abscess without bleeding (principal); K21.9 Gastro-esophageal reflux disease without esophagitis; Z98.890 Other specified postprocedural states; Z87.19 Personal history of other diseases of the digestive system
CPT/HCPCS: 36415; 74177; 80053; 81000; 85025; 86141; 96361; 96374; 96375

== ENCOUNTER 2018-06-20 09:02 | Day surgery (SDC) | payer OTHER ==
[~2018-06-20] VITALS: Ht 160 cm; Wt 87.3 kg
[~2018-06-20 09:02] MED LIST changes: +CIPR500T4 PO; +HYDR-34 PO; +METR-145 PO
[2018-06-20 09:10] VITALS: BP 112/69
[2018-06-20] MEDS ORDERED: PROPOFOL INJECTION 50 ML IV ONE (09:29)
[2018-06-20] MEDS ORDERED: MIDAZOLAM 2 MG/2 ML (VERSED) VIAL ONE (09:29)
--- NOTE | 2018-06-20 09:38 | Progress Note-Pre Operative ---
Pre-Operative Progress Note H&P Reviewed The H&P was reviewed, patient examined and no changes noted. Time Seen by Provider: 09:35 Date H&P Reviewed: June 20, 2018 Time H&P Reviewed: 09:36 Pre-Operative Diagnosis: Diverticulitis NAVJOT TAPIA DO June 20, 2018 09:38
[2018-06-20] MEDS ORDERED: LACTATED RINGERS 1,000 ML IV ONE (09:40)
[2018-06-20] MEDS ORDERED: LACTATED RINGERS 1,000 ML IV PRN (10:00)
--- NOTE | 2018-06-20 10:31 | Progress Note-Post Operative ---
Post-Operative Progess Note Surgeon (s)/Offset Press Assistant (s) Surgeon NAVJOT TAPIA DO Offset Press Assistant: none Pre-Operative Diagnosis Diverticulitis Post-Operative Diagnosis Diverticula Int Hemorrhoids Procedure & Operative Findings Date of Procedure 06/20/18 Procedure Performed/Findings Colonoscopy Anesthesia Type IV sedation by QUALITY ENGINE[employer] MEDICAL DEVICE Estimated Blood Loss Estimated blood loss (mL): none Specimens/Packing Specimens Removed none NAVJOT TAPIA DO June 20, 2018 10:31
--- NOTE | 2018-06-20 10:33 | Endoscopy Discharge Instruct ---
Endo Procedure/Findings Findings 1.: Diverticulosis 2.: Internal Hemorrhoids Discharge Instructions - Activity: You might feel a little sleepy until tomorrow. This is due to the medicine you received to relax you. Until tomorrow, you should: NOT drive a car, operate machinery or power tools. NOT drink any alcoholic beverages. NOT make any important decisions or sign importortant papers. Do not return to work until tomorrow, unless otherwise instructed. Resume previous activities tomorrow. Diet: Start by taking liquids. If you tolerate liquids, advance to solid food. make an appointment for one week Instructions: 1.: Colonscopy in 10 years Notify Physician - If you experience excessive bleeding, unusual abdominal pain, fever, or chest pain, contact your doctor immediately. Follow-Up: - I have received and understand the above instructions and will call my doctor if I have any further questions. Patient Signature Date Nurse Signature Other (Relationship) NAVJOT TAPIA DO June 20, 2018 10:33
[2018-06-20 10:45] VITALS: BP 102/64
[2018-06-20 11:15] VITALS: BP 112/70
[2018-06-20 11:25] VITALS: BP 112/70
--- NOTE | 2018-06-20 14:50 | Anesthesia-General Post-Op ---
MAC Patient Condition Mental Status/LOC: Same as Preop Cardiovascular: Satisfactory Nausea/Vomiting: Absent Respiratory: Satisfactory Pain: Controlled Complications: Absent Post Op Complications Complications None Follow Up Care/Instructions Patient Instructions None needed. Anesthesiology Discharge Order Discharge Order Patient was seen this morning after the procedure and he was doing well, no complaints, stable vital signs, no apparent adverse anesthesia problems. DODIE NAGY DO June 20, 2018 14:50
--- NOTE | 2018-06-20 23:46 | OPERATIVE REPORT ---
DATE OF SERVICE: 06/20/2018 PREOPERATIVE DIAGNOSES: Diverticulitis and diverticulosis with some left lower quadrant pain. POSTOPERATIVE DIAGNOSES: 1. Diverticula. 2. Internal hemorrhoids. PROCEDURE: Colonoscopy. SURGEON: Phillip Tenorio DO. FARM PRODUCTS SHIPPER: None. ANESTHESIA: IV sedation by the TOOL MECHANIC. SPECIMENS: None. BLOOD LOSS: None. FLUIDS: Per anesthesia. POSTOPERATIVE CONDITION: Stable. INDICATION FOR PROCEDURE: The patient is a 37-year-old male who had a previous colon resection secondary to diverticulitis. He has been having episodes of diverticulitis and some left lower quadrant pain and needed a workup. FINDINGS: The patient had some diverticula seen, did not appear to be any acute inflammation, some very minimal internal hemorrhoids. No other obvious pathology. PROCEDURE NOTE: After informed consent was obtained, the patient was brought to the endoscopy suite, placed in the bed in left lateral decubitus position. Administered IV sedation. During the case, his vitals were monitored through the entire time, heart rate, blood pressure and pulse ox by the TOOL MECHANIC. Inserted the scope, pushed all the way to the cecum. I was able to get a picture of the appendiceal orifice. Noted the ileocecal valve and then slowly withdrew the scope insufflating to look circumferentially at the dc looking at the cecum, up the ascending colon to hepatic flexure, then down the transverse colon, splenic flexure, into the descending colon and down through here, found the anastomosis area looked good. He did have some diverticula just above the anastomosis, nothing really below it. Retroflexed the scope in the rectum, saw some internal hemorrhoids. No other obvious pathology. Removed the scope. The patient tolerated the procedure. He was recovered in endoscopy suite. Job ID: [id number] DocumentID: [id number] Dictated Date: 06/20/2018 13:27:28 Vaccine Key Customer Leader Date: 06/20/2018 23:45:28 Dictated By: PHILLIP TENORIO DO
== END 2018-06-20 11:25 | disposition home or self-care (01) ==
LOC: ENDO 09:02
PROVIDERS: ATTEND Surgery
DX: K57.30 Diverticulosis of large intestine without perforation or abscess without bleeding (principal); K64.8 Other hemorrhoids; Z90.49 Acquired absence of other specified parts of digestive tract; Z87.19 Personal history of other diseases of the digestive system; E66.9 Obesity, unspecified; Z68.32 Body mass index [BMI] 32.0-32.9, adult

== ENCOUNTER 2021-12-22 20:51 | Inpatient (IN) | payer SELFPAY ==
[~2021-12-22 20:51] MED LIST changes: +ACHYD1T PO; -CIPR500T4 PO; +CIPR500T5 PO; -HYDR-3820 PO; -OMEP20CA12 PO; +OMEP20CA18 PO
[2021-12-22 21:37] LABS: BASOPHILS % (AUTO) 0 % (0-10); EOSINOPHILS # (AUTO) 0.4 10^3/uL (0.0-0.3); EOSINOPHILS % (AUTO) 2 % (0-10); HEMATOCRIT 47 % (40-54); HEMOGLOBIN 16.1 g/dL (13.3-17.7); LYMPHOCYTES # (AUTO) 1.2 10^3/uL (1.0-4.0); LYMPHOCYTES % (AUTO) 8 % (12-44); MEAN CORPUSCULAR HEMOGLOBIN 30 pg (25-34); MEAN CORPUSCULAR HGB CONC 35 g/dL (32-36); MEAN CORPUSCULAR VOLUME 88 fL (80-99); MEAN PLATELET VOLUME 10.6 fL (9.0-12.2); MONOCYTES # (AUTO) 1.4 10^3/uL (0.0-1.0); MONOCYTES % (AUTO) 9 % (0-12); NEUTROPHILS # (AUTO) 12.3 10^3/uL (1.8-7.8); NEUTROPHILS % (AUTO) 80 % (42-75); PLATELET COUNT 204 10^3/uL (130-400); WHITE BLOOD COUNT 15.3 10^3/uL (4.3-11.0)
--- NOTE | 2021-12-22 21:37 | Diagnostic Imaging Report ---
INDICATION: Chest pain FINDINGS: The lungs clear. No failure, effusion or pneumothorax. IMPRESSION: No acute appearing abnormality. Dictated by: Dictated on workstation # [id number]
--- NOTE | 2021-12-22 21:40 | ED Abdominal Pain ---
General Chief Complaint: Abdominal/GI Problems Stated Complaint: UPPER ABD PAIN Nursing Triage Note: PT ARRIVAL TO ER VIA PRIVATE VEHICLE FROM HOME WITH COMPLAINT OF ABDOMINAL PAIN, VOMITING SINCE YESTERDAY. PT DENIES OTHER COMPLAINTS PAIN IS UPPER LEFT AND RIGHT QUADRANTS. DESCRIBES PAIN A CRAMPING LIKE PAIN. NORMAL BOWEL MOVEMENTS. PAIN AT A 8/10. 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 NO TESTS WERE DONE. GIVEN RX FOR ZOFRAN AND DICYCLOMINE PT STATES THEY ARE NOT HELPING HIS PAIN DOES NOT TAKE ANYTHING ELSE FOR PAIN PT HAS HAD PRIOR COLON RESECTION FOR DIVERTICULITIS [place] [address] TAPIA. HAS HAD MULTIPLE VISITS HERE IN THE PAST FOR DIVERTICULITIS, BUT NONE SINCE 2018. NO CHRONIC MEDICAL PROBLEMS OTHERWISE, AND DOES NOT TAKE ANY DAILY MEDICATIONS. PCP: [facility] Allergies and Home Medications Allergies Coded Allergies: No Known Drug Allergies (Unverified , 06/13/11) Patient Home Medication List Home Medication List Reviewed: Yes Ciprofloxacin HCl (Cipro) 500 Mg Tablet, 500 MG PO BID Prescribed by: NAVJOT TAPIA on 11/21/17 1008 Ciprofloxacin HCl (Ciprofloxacin HCl) 500 Mg Tablet, 500 MG PO BID Prescribed by: CHARLY THOMPSON on 05/10/18 115 Hydrocodone Bit/Acetaminophen (Lortab 7.5 Mg Tablet) 1 Ea Tablet, 1 EACH PO Q6H Prescribed by: CHARLY THOMPSON on 05/10/18 1157 Metronidazole (Flagyl) 500 Mg Tablet, 500 MG PO TID Prescribed by: NAVJOT TAPIA on 11/21/17 1008 Metronidazole (Metronidazole) 500 Mg Tablet, 500 MG PO BID Prescribed by: CHARLY THOMPSON on 05/10/18 1157 Review of Systems Review of Systems Constitutional: no symptoms reported Respiratory: No Symptoms Reported Cardiovascular: No Symptoms Reported; Denies Chest Pain Gastrointestinal: See HPI, Abdominal Pain; Denies Constipated, Denies Diarrhea, Denies Nausea, Denies Vomiting Genitourinary: No Symptoms Reported Musculoskeletal: no symptoms reported Skin: no symptoms reported Psychiatric/Neurological: No Symptoms Reported Endocrine: No Symptoms Reported Hematologic/Lymphatic: No Symptoms Reported Past Ixoizoi-Zncdzh-Rmrutr Hx Patient Social History Tobacco Use?: No Use of E-Cig and/or Vaping dev: No Substance use?: No Alcohol Use?: No Pt feels they are or have been: No Immunizations Up To Date Influenza Vaccine Up-to-Date: No; Not Current Seasonal Allergies Seasonal Allergies: No Past Medical History Surgeries: Yes (COLON RESECTION FOR DIVERTICULITIS 2017 ; COLONOSCOPIES) Abdominal, Bowel Surgery Respiratory: No Cardiac: No Neurological: No Genitourinary: No Gastrointestinal: Yes (S/P COLON RESECTION) Gastroesophageal Reflux, Diverticulosis, Hemorrhoids Musculoskeletal: No Endocrine: No HEENT: No Cancer: No Psychosocial: No Integumentary: No Blood Disorders: No Adverse Reaction/Blood Tranf: No Family Medical History Not obtainable due to adoption (NO HX- DUE TO ADOPTION) No Pertinent Family Hx, Diabetes Physical Exam Vital Signs Vital Signs - First Documented 12/22/21 20:59 Temp 36.8 Pulse 79 Resp 18 B/P (MAP) 120/74 (89) Pulse Ox 100 O2 Delivery Room Air Capillary Refill : Less Than 3 Seconds Height/Weight/BMI Height: 5'3.00" Weight: 192lbs. 8.0oz. [id number]; 34.1 BMI Method:Actual General Appearance: WD/WN, no apparent distress HEENT: No scleral icterus (R), No scleral icterus (L), No pale conjunctivae (R), No pale conjunctivae (L) Neck: normal inspection Respiratory: normal breath sounds, no respiratory distress, no accessory muscle use Cardiovascular: regular rate, rhythm, no murmur Gastrointestinal: normal bowel sounds, soft, tenderness (EPIGASTRIC TENDERNESS), hernia (UMBILICAL HERNIA, SOFT, NON-TENDER, PARTIALLY REDUCIBLE, NON-INFLAMED) Extremities: normal inspection, no pedal edema, normal capillary refill Back: no CVA tenderness Neurologic/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: 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, no motor/sensory deficits, alert, normal mood/affect, oriented x 3 Skin: normal color (PT IS ), warm/dry; No rash Progress/Results/Core Measures Results/Orders Lab Results Laboratory Tests Test 12/22/21 21:30 12/22/21 22:36 Range/Units White Blood Count 15.3 H 4.3-11.0 10^3/uL Red Blood Count 5.31 4.30-5.52 10^6/uL Hemoglobin 16.1 13.3-17.7 g/dL Hematocrit 47 40-54 % Mean Corpuscular Volume 88 80-99 fL Mean Corpuscular Hemoglobin 30 25-34 pg Mean Corpuscular Hemoglobin Concent 35 32-36 g/dL Red Cell Distribution Width 12.9 10.0-14.5 % Platelet Count 204 130-400 10^3/uL Mean Platelet Volume 10.6 9.0-12.2 fL Immature Granulocyte % (Auto) 0 % Neutrophils (%) (Auto) 80 H 42-75 % Lymphocytes (%) (Auto) 8 L 12-44 % Monocytes (%) (Auto) 9 0-12 % Eosinophils (%) (Auto) 2 0-10 % Basophils (%) (Auto) 0 0-10 % Neutrophils # (Auto) 12.3 H 1.8-7.8 10^3/uL Lymphocytes # (Auto) 1.2 1.0-4.0 10^3/uL Monocytes # (Auto) 1.4 H 0.0-1.0 10^3/uL Eosinophils # (Auto) 0.4 H 0.0-0.3 10^3/uL Basophils # (Auto) 0.0 0.0-0.1 10^3/uL Immature Granulocyte # (Auto) 0.1 0.0-0.1 10^3/uL Neutrophils % (Manual) 87 % Lymphocytes % (Manual) 4 % Monocytes % (Manual) 8 % Eosinophils % (Manual) 1 % Blood Morphology Comment NORMAL Sodium Level 138 135-145 MMOL/L Potassium Level 3.3 L 3.6-5.0 MMOL/L Chloride Level 105 98-107 MMOL/L Carbon Dioxide Level 20 L 21-32 MMOL/L Anion Gap 13 5-14 MMOL/L Blood Urea Nitrogen 15 7-18 MG/DL Creatinine 0.62 0.60-1.30 MG/DL Estimat Glomerular Filtration Rate 124 BUN/Creatinine Ratio 24 Glucose Level 128 H 70-105 MG/DL Calcium Level 8.5 8.5-10.1 MG/DL Corrected Calcium 8.3 L 8.5-10.1 MG/DL Magnesium Level 2.0 1.6-2.4 MG/DL Total Bilirubin 1.8 H 0.1-1.0 MG/DL Aspartate Amino Transf (AST/SGOT) 32 5-34 U/L Alanine Aminotransferase (ALT/SGPT) 74 H 0-55 U/L Alkaline Phosphatase 94 40-136 U/L Troponin I < 0.028 <0.028 NG/ML Total Protein 7.1 6.4-8.2 GM/DL Albumin 4.2 3.2-4.5 GM/DL Amylase Level 53 25-125 U/L Lipase 16 8-78 U/L Urine Color YELLOW Urine Clarity CLEAR Urine pH 6.0 5-9 Urine Specific [place] >=1.030 1.016-1.022 Urine Protein NEGATIVE NEGATIVE Urine Glucose (UA) NEGATIVE NEGATIVE Urine Ketones NEGATIVE NEGATIVE Urine Nitrite NEGATIVE NEGATIVE Urine Bilirubin NEGATIVE NEGATIVE Urine Urobilinogen 0.2 < = 1.0 MG/DL Urine Leukocyte Esterase NEGATIVE NEGATIVE Urine RBC (Auto) NEGATIVE NEGATIVE Urine RBC NONE /HPF Urine WBC 0-2 /HPF Urine Squamous Epithelial Cells NONE /HPF Urine Renal Epithelial Cells NONE /HPF Urine Crystals NONE /LPF Urine Bacteria NEGATIVE /HPF Urine Casts NONE /LPF Urine Mucus NEGATIVE /LPF Urine Culture Indicated NO My Orders Orders - YE QUINONES DO Ed Iv/Invasive Line Start (12/22/21 21:07) Ekg Tracing (12/22/21 21:07) Monitor-Rhythm Ecg Trace Only (12/22/21 21:07) Amylase (12/22/21 21:07) Cbc With Automated Diff (12/22/21 21:07) Comprehensive Metabolic Panel (12/22/21 21:07) Lipase (12/22/21 21:07) Magnesium (12/22/21 21:07) Ua Culture If Indicated (12/22/21 21:07) Troponin I Marcial (12/22/21 21:07) Chest 1 View, Ap/Pa Only (12/22/21 21:07) Manual Differential (12/22/21 21:30) Ct Abd/Pelv W (Appendicitis) (12/22/21 23:06) Iohexol Injection (Omnipaque 350 Mg/Ml 1 (12/23/21 00:15) Received Contrast (Hold Metformin- Contr (12/23/21 00:15) Ns (Ivpb) (Sodium Chloride 0.9% Ivpb Bag (12/23/21 00:15) Medications Given in ED Current Medications Medications Dose Ordered Sig/Blade Route Start Time Stop Time Status Last Admin Dose Admin Iohexol 100 ml ONCE ONCE IV 12/23/21 00:15 12/23/21 00:16 DC 12/23/21 00:04 80 ML Sodium Chloride 100 ml ONCE ONCE IV 12/23/21 00:15 12/23/21 00:16 DC 12/23/21 00:04 80 ML Vital Signs/I&O 12/22/21 20:59 Temp 36.8 Pulse 79 Resp 18 B/P (MAP) 120/74 (89) Pulse Ox 100 O2 Delivery Room Air Blood Pressure Mean: 89 Progress Progress Note : Progress Note GIVEN IV FLUIDS, ZOFRAN, PROTONIX AND FENTANYL FOR PAIN WITH RELIEF NO DETERIORATION IN PT'S CONDITION DURING ER STAY Initial ECG Impression Date: Dec 22, 2021 Initial ECG Impression Time: 21:17 Initial ECG Rate: 74 Initial ECG Rhythm: Normal Sinus Diagnostic Imaging Comments CXR--NO ACUTE PROCESS, PENDING RADIOLOGIST REVIEW CT ABDOMEN/PELVIS--PER [facility] VIA FAX AT 0021 -MODERATE LOW ATTENUATION MURAL THICKENING OF THE DUODENUM MAY REPRESENT DUODENI TIS. NON-SPECIFIC FLUID IN SMALL BOWEL ELSEWHERE COULD BE ENTERITIS -SMALL 12 MM FOCUS OF HYPERATTENUATION WITHIN NORMAL APPEARING FLUID IN STOMACH, THIS COULD BE RELATED TO INGESTED MEDICINE, GASTRIC HEMORRHAGE IS NOT EXCLUDED. -PRIOR PROXIMAL SIGMOID SURGERY AND ANASTAMOSIS. MILD SCATTERED DIVERTICULOSIS. NO INDICATION OF DIVERTICULITIS. Reviewed: Reviewed by Sc Departure Communication (Admissions) 0023--SPOKE WITH DR. HYLTON, SURGEON ROLL TENSION TESTER. HE ADVISES TO ADMIT PT TO DR. TAPIA'S SERVICE. Impression Primary Impression: Abdominal pain Additional Impressions: POSSIBLE GI BLEED Duodenitis HX DIVERTICULITIS WITH SIGMOID COLON RESECTION Disposition: ADMITTED INPATIENT Condition: Improved Admissions Decision to Admit Reason: Admit from ER (General) Decision to Admit/Date: Dec 23, 2021 Time/Decision to Admit Time: 00:25 Departure-Patient Inst. Referrals: [facility] (PCP/Family) Primary Care Physician YE QUINONES DO Dec 22, 2021 21:40
[2021-12-22 21:53] LABS: EOSINOPHILS % (MANUAL) 1 %; LYMPHOCYTES % (MANUAL) 4 %; MONOCYTES % (MANUAL) 8 %; NEUTROPHILS % (MANUAL) 87 %; RBC MORPH NORMAL
[2021-12-22 22:08] LABS: ALANINE AMINOTRANSFERASE 74 U/L (0-55); ALBUMIN 4.2 GM/DL (3.2-4.5); ALKALINE PHOSPHATASE 94 U/L (40-136); AMYLASE 53 U/L (25-125); BILIRUBIN,TOTAL 1.8 MG/DL (0.1-1.0); BUN/CREATININE RATIO 24; CALCIUM 8.5 MG/DL (8.5-10.1); CARBON DIOXIDE 20 MMOL/L (21-32); CHLORIDE 105 MMOL/L (98-107); CREATININE SERUM 0.62 MG/DL (0.60-1.30); GFR ESTIMATED 124; GLUCOSE 128 MG/DL (70-105); LIPASE 16 U/L (8-78); POTASSIUM 3.3 MMOL/L (3.6-5.0); SODIUM 138 MMOL/L (135-145); TOTAL PROTEIN 7.1 GM/DL (6.4-8.2)
[2021-12-22 22:41] LABS: BILIRUBIN,URINE NEGATIVE (NEGATIVE); CLARITY,URINE CLEAR; COLOR,URINE YELLOW; GLUCOSE, URINE (UA) NEGATIVE (NEGATIVE); KETONES,URINE NEGATIVE (NEGATIVE); LEUKOCYTE ESTERASE ,URINE NEGATIVE (NEGATIVE); NITRITE,URINE NEGATIVE (NEGATIVE); PROTEIN,URINE NEGATIVE (NEGATIVE)
[2021-12-22 22:47] LABS: BACTERIA,URINE NEGATIVE /HPF; WBC,URINE 0-2 /HPF
[2021-12-23] VITALS (8 sets, daily range): BP systolic 90–124; BP diastolic 55–99
[2021-12-23] MEDS ORDERED: NS 100 ML (IVPB) BAG IV ONE (00:15)
[2021-12-23] MEDS ORDERED: HOLD METFORMIN - RECEIVED CONTRAST 20 ML VIAL IV SCH (00:15)
[2021-12-23] MEDS ORDERED: IOHEXOL 350 MG/ML 100 ML (OMNIPAQUE 350) VIAL IV ONE (00:15)
[2021-12-23] MEDS ORDERED: PANTOPRAZOLE 40 MG (PROTONIX) VIAL IV ONE (00:30)
[2021-12-23] MEDS ORDERED: fentaNYL INJ 100 MCG/2 ML AMP IVP ONE (00:30)
[2021-12-23] MEDS ORDERED: LACTATED RINGERS 1,000 ML IV ONE (01:47)
[2021-12-23] MEDS: LACTATED RINGERS 1,000 ML IV SCH ×3 (01:51→16:16)
[2021-12-23] MEDS ORDERED: ONDANSETRON 4 MG/2 ML (SDV) Z0FRAN IV PRN (02:00)
[2021-12-23] MEDS ORDERED: fentaNYL INJ 100 MCG/2 ML AMP IV PRN (02:00)
[2021-12-23] MEDS ORDERED: ACETAMINOPHEN 650 MG SUPP (TYLENOL) PR PRN (03:15)
[2021-12-23] MEDS ORDERED: ACETAMINOPHEN 650 MG SUPP (TYLENOL) ONE (03:16)
[2021-12-23 05:43] LABS: BASOPHILS % (AUTO) 0 % (0-10); EOSINOPHILS # (AUTO) 0.2 10^3/uL (0.0-0.3); EOSINOPHILS % (AUTO) 1 % (0-10); HEMATOCRIT 44 % (40-54); HEMOGLOBIN 15.2 g/dL (13.3-17.7); LYMPHOCYTES # (AUTO) 1.6 10^3/uL (1.0-4.0); LYMPHOCYTES % (AUTO) 11 % (12-44); MEAN CORPUSCULAR HEMOGLOBIN 31 pg (25-34); MEAN CORPUSCULAR HGB CONC 34 g/dL (32-36); MEAN CORPUSCULAR VOLUME 89 fL (80-99); MEAN PLATELET VOLUME 11.2 fL (9.0-12.2); MONOCYTES # (AUTO) 1.3 10^3/uL (0.0-1.0); MONOCYTES % (AUTO) 10 % (0-12); NEUTROPHILS # (AUTO) 10.9 10^3/uL (1.8-7.8); NEUTROPHILS % (AUTO) 78 % (42-75); PLATELET COUNT 190 10^3/uL (130-400)
--- NOTE | 2021-12-23 07:09 | Diagnostic Imaging Report ---
PROCEDURE: CT abdomen and pelvis with contrast, rule out appendicitis. TECHNIQUE: Multiple contiguous axial images were obtained through the abdomen and pelvis after the administration of intravenous contrast. All CT scans use one or more of the following dose optimizing techniques: automated exposure control, MA and/or KvP adjustment based on patient size and exam type or iterative reconstruction. INDICATION: 41-year-old male, abdominal pain. CORRELATION STUDY: CT abdomen pelvis 05/10/2018 FINDINGS: LOWER THORAX: Clear. LIVER: Moderate hepatic steatosis. GALLBLADDER: Distended but otherwise unremarkable. SPLEEN: Unremarkable. PANCREAS: Unremarkable. ADRENAL GLANDS: Unremarkable. KIDNEYS: Normal configuration. No calcification or obstruction. ABDOMINAL AORTA: Unremarkable, nonaneurysmal. GASTROINTESTINAL TRACT: Stomach distended with retained gastric contents. There is approximately 12 mm hazy area of increased attenuation within the mixed gastric contents distal body. There is rather prominent wall thickening of the duodenum extending into the proximal jejunum. Additional fluid-filled loops of small bowel are present without transition or evidence for obstruction. There is mild stool through the colon. Prior surgical change with anastomosis left colon. Mild colonic diverticulosis. No abdominal ascites and/or free air. URINARY BLADDER: Unremarkable. REPRODUCTIVE: Unremarkable. OSSEOUS STRUCTURES: Bridging osteophytes lower thoracic spine. OTHER: None. IMPRESSION: 1. Rather prominent wall thickening of the duodenum extending into proximal small bowel raising concern for duodenitis/enteritis. No small bowel obstruction. 2. Rather prominent amount of retained gastric contents. Small foci of hyperattenuation is noted. Could be reflect of ingested contents. Possibility of gastric hemorrhage however is not excluded. 3. Hepatomegaly. A preliminary report was provided by [facility]. Dictated by: Dictated on workstation # [id number]
[2021-12-23] MEDS: PANTOPRAZOLE 40 MG (PROTONIX) VIAL IV SCH ×2 (08:36→19:32)
--- NOTE | 2021-12-23 09:30 | Consultation - Surgery ---
MICHAEL ROSE 12/23/21 0929: History of Present Illness History of Present Illness Patient Consulted On(piper/time) 12/23/21 08:24 Date Seen by Provider: Dec 23, 2021 Time Seen by Provider: 08:24 History of Present Illness Kylie Granados, 41 yo M, presented to ED on 12/22 which chief complaint of abdominal pain. He was subsequently admitted for Duodenitis and a possible GI bleed. Pt has a history of diverticulitis with sigmoid colon resection in 2017. Pt is Swazi speaking only. Medical interpretor was used for this interview. Also, pt states he does not read. Mr. Granados reports that stomach pain is what brought him to the hospital. The pain began on Wednesday morning and woke him from sleep. It has been constant ever since, concentrated to his RUQ and epigastric region. States that it is a consistent 10/10 described only as "pain" and nothing makes it better. He has never experienced pain like this before and did not identify any possible trigger which might have made it start on Wednesday. Pt went to [facility] yesterday for his pain. At the time he states he was given pills which did not work. Pt then sought help at [facility] ED. Pt states he was told in the ED that he had "an ulcer which burst" which is why he is admitted. Pt last bowel movement was yesterday at noon. He has been passing gas. Last ate on Wednesday. Last drank juice yesterday at 7pm. Denies use of blood thinners. Per ED note, pt was given Zofran and dicyclomine at [facility]. Pt has had multiple visits here previously for diverticulitis. Allergies and Home Medications Allergies Coded Allergies: No Known Drug Allergies (Unverified , 06/13/11) Patient Home Medication List Home Medication List Reviewed: Yes Dicyclomine HCl (Dicyclomine HCl) 20 Mg Tablet, 20 MG PO TID, (Reported) Entered as Reported by: OK HAUSER on 12/23/211121 Last Action: Reviewed Ondansetron (Ondansetron Odt) 4 Mg Tab.rapdis, 4 MG SL TID PRN for NAUSEA/VOMITING-1ST LINE, (Reported) Entered as Reported by: OK HAUSER on 12/23/211121 Last Action: Reviewed Discontinued Medications Ciprofloxacin HCl (Cipro) 500 Mg Tablet, 500 MG PO BID Discontinued Reason: No Longer Taking Prescribed by: NAVJOT TAPIA on 11/21/17 1008 Last Action: Discontinued Ciprofloxacin HCl (Ciprofloxacin HCl) 500 Mg Tablet, 500 MG PO BID Discontinued Reason: No Longer Taking Prescribed by: CHARLY THOMPSON on 05/10/181156 Last Action: Discontinued Hydrocodone Bit/Acetaminophen (Lortab 7.5 Mg Tablet) 1 Ea Tablet, 1 EACH PO Q6H Discontinued Reason: No Longer Taking Prescribed by: CHARLY THOMPSON on 05/10/181156 Last Action: Discontinued Metronidazole (Flagyl) 500 Mg Tablet, 500 MG PO TID Discontinued Reason: No Longer Taking Prescribed by: NAVJOT TAPIA on 11/21/171007 Last Action: Discontinued Metronidazole (Metronidazole) 500 Mg Tablet, 500 MG PO BID Discontinued Reason: No Longer Taking Prescribed by: CHARLY THOMPSON on 05/10/181156 Last Action: Discontinued Past Emvgmzu-Bkulpd-Vmhsef Hx Patient Social History Smoking Status: Never a Smoker 2nd Hand Smoke Exposure: No Recent Hopitalizations: No Alcohol Use?: No Have you traveled recently?: No Seasonal Allergies Seasonal Allergies: No Surgeries History of Surgeries: Yes (COLON RESECTION FOR DIVERTICULITIS 2017 ; COLONOSCOPIES) Surgeries: Abdominal (sigmoid colon rescection in [address] Tapia), Bowel Surgery (sigmoid colon rescection in [address] Tapia) Respiratory History of Respiratory Disorde: No Cardiovascular History of Cardiac Disorders: No Neurological History of Neurological Disord: No Genitourinary History of Genitourinary Disor: No Gastrointestinal History of Gastrointestinal Di: Yes (S/P COLON RESECTION) Gastrointestinal Disorders: Diverticulosis Musculoskeletal History of Musculoskeletal Dis: No Endocrine History of Endocrine Disorders: No HEENT History of HEENT Disorders: No Cancer History of Cancer: No Psychosocial History of Psychiatric Problem: No Integumentary History of Skin or Integumenta: No Blood Transfusions History of Blood Disorders: No Adverse Reaction to a Blood Tr: No Family Medical History Significant Family History: Cancer (states parents did not have hx of cancer), Diabetes (states parents did not have diabetes) Family Medial History: Not obtainable due to adoption (NO HX- DUE TO ADOPTION) Review of Systems-General Constitutional: chills (pt had chills on Wednesday), fever (pt had fever last night and on Wednesday) EENTM: No blurred vision, No hoarseness Respiratory: No cough, No hemoptysis, No short of breath Cardiovascular: No chest pain, No palpitations Gastrointestinal: RUQ, abdominal pain (RUQ and epigastric region); No constipation, No diarrhea, No melena; nausea (on Wednesday); No vomiting Genitourinary: No dysuria, No frequency, No hematuria Musculoskeletal: No back pain, No neck pain Skin: No change in color, No hx of skin cancer Psychiatric/Neurological: Denies Headache, Denies Numbness, Denies Tingling, Denies Tremors Physical Exam-General Problems Physical Exam Vital Signs Vital Signs - First Documented 12/22/21 20:59 Temp 36.8 Pulse 79 Resp 18 B/P (MAP) 120/74 (89) Pulse Ox 100 O2 Delivery Room Air Capillary Refill : Less Than 3 Seconds General Appearance: WD/WN, no apparent distress Eyes: Bilateral Eye PERRL, Bilateral Eye EOMI HEENT: PERRL/EOMI; No pale conjunctivae (R), No pale conjunctivae (L) Neck: full range of motion, supple Respiratory: lungs clear, normal breath sounds, no respiratory distress, no accessory muscle use Cardiovascular: normal peripheral pulses, regular rate, rhythm, no murmur Peripheral Pulses: 2+ Dorsalis Pedis (R), 2+ Left Dors-Pedis (L), 2+ Radial Pulses (R), 2+ Radial Pulses (L) Gastrointestinal: soft, guarding (RUQ and epigastric region), tenderness (RUQ/epigastric region), hernia (umbilical) Rectal: deferred Back: no CVA tenderness, no vertebral tenderness Extremities: non-tender, normal inspection, no pedal edema, no calf tenderness Neurologic/Psychiatric: alert, oriented x 3 Skin: warm/dry, tattoos/piercings Data Review Labs Laboratory Tests 12/22/21 21:30: White Blood Count 15.3H, Red Blood Count 5.31, Hemoglobin 16.1, Hematocrit 47, Mean Corpuscular Volume 88, Mean Corpuscular Hemoglobin 30, Mean Corpuscular Hemoglobin Concent 35, Red Cell Distribution Width 12.9, Platelet Count 204, Mean Platelet Volume 10.6, Immature Granulocyte % (Auto) 0, Neutrophils (%) (Auto) 80H, Lymphocytes (%) (Auto) 8L, Monocytes (%) (Auto) 9, Eosinophils (%) (Auto) 2, Basophils (%) (Auto) 0, Neutrophils # (Auto) 12.3H, Lymphocytes # (Auto) 1.2, Monocytes # (Auto) 1.4H, Eosinophils # (Auto) 0.4H, Basophils # (Auto) 0.0, Immature Granulocyte # (Auto) 0.1, Neutrophils % (Manual) 87, Lymphocytes % (Manual) 4, Monocytes % (Manual) 8, Eosinophils % (Manual) 1, Blood Morphology Comment NORMAL, Sodium Level 138, Potassium Level 3.3L, Chloride Level 105, Carbon Dioxide Level 20L, Anion Gap 13, Blood Urea Nitrogen 15, Creatinine 0.62, Estimat Glomerular Filtration Rate 124, BUN/Creatinine Ratio 24, Glucose Level 128H, Calcium Level 8.5, Corrected Calcium 8.3L, Magnesium Level 2.0, Total Bilirubin 1.8H, Aspartate Amino Transf (AST/SGOT) 32, Alanine Aminotransferase (ALT/SGPT) 74H, Alkaline Phosphatase 94, Troponin I < 0.028, Total Protein 7.1, Albumin 4.2, Amylase Level 53, Lipase 16 12/22/21 22:36: Urine Color YELLOW, Urine Clarity CLEAR, Urine pH 6.0, Urine Specific Wesley >=1.030, Urine Protein NEGATIVE, Urine Glucose (UA) NEGATIVE, Urine Ketones NEGATIVE, Urine Nitrite NEGATIVE, Urine Bilirubin NEGATIVE, Urine Urobilinogen 0.2, Urine Leukocyte Esterase NEGATIVE, Urine RBC (Auto) NEGATIVE, Urine RBC NONE, Urine WBC 0-2, Urine Squamous Epithelial Cells NONE, Urine Renal Epithelial Cells NONE, Urine Crystals NONE, Urine Bacteria NEGATIVE, Urine Casts NONE, Urine Mucus NEGATIVE, Urine Culture Indicated NO 12/23/21 05:15: White Blood Count 14.0H, Red Blood Count 4.97, Hemoglobin 15.2, Hematocrit 44, Mean Corpuscular Volume 89, Mean Corpuscular Hemoglobin 31, Mean Corpuscular Hemoglobin Concent 34, Red Cell Distribution Width 13.0, Platelet Count 190, Mean Platelet Volume 11.2, Immature Granulocyte % (Auto) 0, Neutrophils (%) (Auto) 78H, Lymphocytes (%) (Auto) 11L, Monocytes (%) (Auto) 10, Eosinophils (%) (Auto) 1, Basophils (%) (Auto) 0, Neutrophils # (Auto) 10.9H, Lymphocytes # (Auto) 1.6, Monocytes # (Auto) 1.3H, Eosinophils # (Auto) 0.2, Basophils # (Auto) 0.0, Immature Granulocyte # (Auto) 0.1 Radiology NAME: KYLIE GRANADOS [facility] REC#: [id number] PT STATUS: REG ER : 1980 PHYSICIAN: YE QUINONES DO ADMIT DATE: 12/22/21/ER Signed Date of Exam:12/22/21 CHEST 1 VIEW, AP/PA ONLY INDICATION: Chest pain FINDINGS: The lungs clear. No failure, effusion or pneumothorax. IMPRESSION: No acute appearing abnormality. Dictated by: Dictated on workstation # [id number] Dict: 12/22/212129 Trans: 12/22/212156 [facility] [id number] Interpreted by: MARGO LEA Electronically signed by: MARGO LEA 12/22/212156 NAME: KYLIE GRANADOS [facility] REC#: [id number] PT STATUS: ADM IN : 1980 PHYSICIAN: YE QUINONES DO ADMIT DATE: 12/23/21/[facility] Draft Date of Exam:12/22/21 CT ABD/PELV W (APPENDICITIS) PROCEDURE: CT abdomen and pelvis with contrast, rule out appendicitis. TECHNIQUE: Multiple contiguous axial images were obtained through the abdomen and pelvis after the administration of intravenous contrast. All CT scans use one or more of the following dose optimizing techniques: automated exposure control, MA and/or KvP adjustment based on patient size and exam type or iterative reconstruction. INDICATION: 41-year-old male, abdominal pain. CORRELATION STUDY: CT abdomen pelvis 05/10/2018 FINDINGS: LOWER THORAX: Clear. LIVER: Moderate hepatic steatosis. GALLBLADDER: Distended but otherwise unremarkable. SPLEEN: Unremarkable. PANCREAS: Unremarkable. ADRENAL GLANDS: Unremarkable. KIDNEYS: Normal configuration. No calcification or obstruction. ABDOMINAL AORTA: Unremarkable, nonaneurysmal. GASTROINTESTINAL TRACT: Stomach distended with retained gastric contents. There is approximately 12 mm hazy area of increased attenuation within the mixed gastric contents distal body. There is rather prominent wall thickening of the duodenum extending into the proximal jejunum. Additional fluid-filled loops of small bowel are present without transition or evidence for obstruction. There is mild stool through the colon. Prior surgical change with anastomosis left colon. Mild colonic diverticulosis. No abdominal ascites and/or free air. URINARY BLADDER: Unremarkable. REPRODUCTIVE: Unremarkable. OSSEOUS STRUCTURES: Bridging osteophytes lower thoracic spine. OTHER: None. IMPRESSION: 1. Rather prominent wall thickening of the duodenum extending into proximal small bowel raising concern for duodenitis/enteritis. No small bowel obstruction. 2. Rather prominent amount of retained gastric contents. Small foci of hyperattenuation is noted. Could be reflect of ingested contents. Possibility of gastric hemorrhage however is not excluded. 3. Hepatomegaly. A preliminary report was provided by Mervat. Dictated on workstation # [id number] Dict: 12/23/2159 Trans: 12/23/21708 [place] [id number] Interpreted by: EARNESTINE PEARSON DO Electronically signed by: Assessment/Plan Assessment/Plan Assessment/Plan Duodenitis possible GI bleed possible peptic/duodenal ulcer Contunie IVF and pain management. Keep NPO. Consider NG tube and EGD. NAVJOT TAPIA DO 12/23/21 1610: History of Present Illness History of Present Illness Time Seen by Provider: 11:41 History of Present Illness Surgery asked to admit pt regarding distended stomach with unknown contents. Pt describes pain that woke him from sleep on Wednesday and just has not gotten better. Pain mostly epigastric and at its worst a 10 out of 10. He stated it radiates to his back. Doing ok when I saw him, resting comfortably in bed. Information obtained with help of business machines teacher. Allergies and Home Medications Allergies Coded Allergies: No Known Drug Allergies (Unverified , 06/13/11) Patient Home Medication List Home Medication List Reviewed: Yes Dicyclomine HCl (Dicyclomine HCl) 20 Mg Tablet, 20 MG PO TID, (Reported) Entered as Reported by: OK HAUSER on 12/23/211121 Last Action: Reviewed Ondansetron (Ondansetron Odt) 4 Mg Tab.rapdis, 4 MG SL TID PRN for NAUSEA/VOMITING-1ST LINE, (Reported) Entered as Reported by: OK HAUSER on 11/15/22 1122 Last Action: Reviewed Discontinued Medications Ciprofloxacin HCl (Cipro) 500 Mg Tablet, 500 MG PO BID Discontinued Reason: No Longer Taking Prescribed by: NAVJOT TAPIA on 11/21/17 1008 Last Action: Discontinued Ciprofloxacin HCl (Ciprofloxacin HCl) 500 Mg Tablet, 500 MG PO BID Discontinued Reason: No Longer Taking Prescribed by: CHARLY THOMPSON on 05/10/181156 Last Action: Discontinued Hydrocodone Bit/Acetaminophen (Lortab 7.5 Mg Tablet) 1 Ea Tablet, 1 EACH PO Q6H Discontinued Reason: No Longer Taking Prescribed by: CHARLY THOMPSON on 05/10/181156 Last Action: Discontinued Metronidazole (Flagyl) 500 Mg Tablet, 500 MG PO TID Discontinued Reason: No Longer Taking Prescribed by: NAVJOT TAPIA on 11/21/17 100 Last Action: Discontinued Metronidazole (Metronidazole) 500 Mg Tablet, 500 MG PO BID Discontinued Reason: No Longer Taking Prescribed by: CHARLY THOMPSON on 05/10/181156 Last Action: Discontinued Past Yadgphp-Nyvina-Zsisnj Hx Patient Social History Smoking Status: Never a Smoker Alcohol Use?: No Surgeries History of Surgeries: Yes Surgeries: Abdominal (sigmoid colon rescection [place] [address] Tapia), Bowel Surgery (sigmoid colon rescection [place] [address] Tapia) Respiratory History of Respiratory Disorde: No Cardiovascular History of Cardiac Disorders: No Neurological History of Neurological Disord: No Reproductive System Hx Reproductive Disorders: No Genitourinary History of Genitourinary Disor: No Gastrointestinal History of Gastrointestinal Di: Yes Gastrointestinal Disorders: Gastroesophageal Reflux, Diverticulosis Endocrine History of Endocrine Disorders: No HEENT Loss of Vision: Denies Hearing Impairment: Denies Cancer History of Cancer: No Family Medical History Significant Family History: Cancer (states parents did not have hx of cancer), Diabetes (states parents did not have diabetes) Family Medial History: Not obtainable due to adoption (NO HX- DUE TO ADOPTION) Review of Systems-General Constitutional: chills (pt had chills on Wednesday), fever (pt had fever last night and on Wednesday) EENTM: No blurred vision, No hoarseness Respiratory: No cough, No hemoptysis, No short of breath Cardiovascular: No chest pain, No palpitations Gastrointestinal: RUQ, abdominal pain (RUQ and epigastric region); No constipation, No diarrhea, No melena; nausea (on Wednesday); No vomiting Genitourinary: No dysuria, No frequency, No hematuria Musculoskeletal: No back pain, No neck pain Skin: No change in color, No change in hair/nails, No hx of skin cancer Psychiatric/Neurological: Denies Anxiety, Denies Depressed, Denies Headache, Denies Numbness, Denies Tingling, Denies Tremors Physical Exam-General Problems Physical Exam General Appearance: WD/WN, mild distress, obese Eyes: Bilateral Eye PERRL, Bilateral Eye EOMI HEENT: pharynx normal; No scleral icterus (R), No scleral icterus (L) Neck: full range of motion, supple Respiratory: lungs clear, normal breath sounds, no respiratory distress, no accessory muscle use Cardiovascular: regular rate, rhythm, no murmur Gastrointestinal: soft, no organomegaly, guarding (RUQ and epigastric region), tenderness (RUQ/epigastric region), hernia (umbilical) Rectal: deferred Back: no CVA tenderness, no vertebral tenderness Extremities: non-tender, normal inspection, no pedal edema, no calf tenderness Neurologic/Psychiatric: alert, oriented x 3 Skin: warm/dry, tattoos/piercings Lymphatic: no adenopathy (neck, axilla or groin) Assessment/Plan Assessment/Plan Assessment/Plan Duodenitis Possible peptic/duodenal ulcer Plan is to continue IV fluids, pain management and anti-emetics as needed. Keep NPO. Plan for an EGD in the am. I reviewed the CT myself and can see the duodenal thickening just past the sweep of the duodenum; should be able to see this area during EGD. I don't think he has GI bleed (he could) but just has retained food in his stomach; again will check during EGD. Supervisory-Addendum Brief Verification & Attestation Participated in pt care: history, MDM, physical Personally performed: exam, history, MDM, supervision of care Care discussed with: Medical Student Procedures: n/a Verification and Attestation of Medical Student E/M Service A medical student performed and documented this service. I then reviewed and verified all information documented by the medical student and made modifications to such information, when appropriate. I personally performed a physical exam, medical decision making and then discussed any differences between the notes and made revisions as necessary to create one note. Navjot Tapia , 12/23/21 , 16:12 MICHAEL ROSE Dec 23, 2021 09:29 NAVJOT TAPIA DO Dec 23, 2021 16:10
[2021-12-23] MEDS ORDERED: ONDA4TAB11 SL (11:22)
[2021-12-23] MEDS ORDERED: DICY20TA PO (11:22)
[2021-12-24] VITALS (9 sets, daily range): BP systolic 88–168; BP diastolic 50–81
[2021-12-24] MEDS: LACTATED RINGERS 1,000 ML IV SCH ×3 (00:55→09:23)
[2021-12-24 05:57] LABS: BASOPHILS % (AUTO) 0 % (0-10); EOSINOPHILS # (AUTO) 0.3 10^3/uL (0.0-0.3); EOSINOPHILS % (AUTO) 3 % (0-10); HEMATOCRIT 43 % (40-54); HEMOGLOBIN 14.5 g/dL (13.3-17.7); LYMPHOCYTES # (AUTO) 1.8 10^3/uL (1.0-4.0); LYMPHOCYTES % (AUTO) 18 % (12-44); MEAN CORPUSCULAR HEMOGLOBIN 31 pg (25-34); MEAN CORPUSCULAR HGB CONC 34 g/dL (32-36); MEAN CORPUSCULAR VOLUME 90 fL (80-99); MEAN PLATELET VOLUME 11.2 fL (9.0-12.2); MONOCYTES # (AUTO) 0.8 10^3/uL (0.0-1.0); MONOCYTES % (AUTO) 8 % (0-12); NEUTROPHILS % (AUTO) 70 % (42-75); PLATELET COUNT 209 10^3/uL (130-400); WHITE BLOOD COUNT 9.9 10^3/uL (4.3-11.0)
[2021-12-24 06:09] LABS: CALCIUM 8.5 MG/DL (8.5-10.1); CREATININE SERUM 0.67 MG/DL (0.60-1.30); POTASSIUM 3.3 MMOL/L (3.6-5.0)
--- NOTE | 2021-12-24 07:47 | Progress Note - Surgery ---
MICHAEL ROSE 12/24/21 0747: Subjective Date Seen by a Provider: Dec 24, 2021 Time Seen by a Provider: 07:04 Subjective/Events-last exam Pt interviewed using biomedical manager, Estrella ID #[id number]. This morning pt is sleeping quietly and in no acute distress. EGD scheduled this morning and pt has signed consent. Pain is currently a 2/10 in epigastric area and non-radiating. Pt has been NPO status and pt is wanting to have food and water after scope. Has been ambulating without difficulty in his room. Has had no bowel movement since admission but is passing gas. No problems voiding. Pt is on desk monitor and is unsure as to why. Review of Systems General: No Chills, No Fatigue; Appetite (pt is asking for food/drink) HEENT: No Head Aches, No Visual Changes Pulmonary: No Dyspnea, No Cough Cardiovascular: No: Chest Pain, Palpitations Gastrointestinal: Abdominal Pain (2/10 in epigastric region); No: Nausea, Vomiting Genitourinary: No Dysuria, No Hematuria Musculoskeletal: No: neck pain, back pain, leg pain Neurological: No: Weakness, Numbness Objective Exam Vital Signs Date Time Temp Pulse Resp B/P (MAP) Pulse Ox O2 Delivery O2 Flow Rate FiO2 12/24/21 07:11 65 12/24/21 04:55 37.1 65 18 102/55 (71) 97 Room Air 12/24/21 01:00 60 12/23/21 23:00 36.9 60 18 90/55 (67) 99 Room Air 12/23/21 19:30 Room Air 12/23/21 19:23 36.8 64 18 102/56 (71) 96 Room Air 12/23/21 19:00 67 12/23/21 15:37 36.6 67 18 103/55 (71) 97 Room Air 12/23/21 13:00 71 12/23/21 12:00 36.4 70 18 113/60 (77) 94 Room Air 12/23/21 08:00 37.0 75 20 111/61 (78) 95 Room Air 12/23/21 08:00 95 Room Air 12/23/21 08:00 Room Air I & O 12/24/21 07:00 Intake Total 3000 ml Output Total 2250 ml Balance 750 ml Capillary Refill : Less Than 3 Seconds General Appearance: No Apparent Distress, WD/WN HEENT: PERRL/EOMI, Moist Mucous Membranes, Other (gold teeth) Neck: Non Tender, Supple Respiratory: Lungs Clear, Normal Breath Sounds, No Accessory Muscle Use, No Respiratory Distress Cardiovascular: Regular Rate, Rhythm, No Murmur, Normal Peripheral Pulses Peripheral Pulses: 2+ Dorsalis Pedis (R), 2+ Left Dors-Pedis (L), 2+ Radial Pulses (R), 2+ Radial Pulses (L) Gastrointestinal: soft, no organomegaly, tenderness (Epigastric region), hernia (umbilical), other (periumbilical scar) Extremity: Normal Range of Motion, Non Tender, No Calf Tenderness, No Pedal Edema Neurologic/Psychiatric: Alert, Oriented x3 Skin: Normal Color, Warm/Dry Lymphatic: No Adenopathy Results Lab Laboratory Tests 12/24/21 05:25: White Blood Count 9.9, Red Blood Count 4.73, Hemoglobin 14.5, Hematocrit 43, Mean Corpuscular Volume 90, Mean Corpuscular Hemoglobin 31, Mean Corpuscular Hemoglobin Concent 34, Red Cell Distribution Width 13.1, Platelet Count 209, Mean Platelet Volume 11.2, Immature Granulocyte % (Auto) 0, Neutrophils (%) (Auto) 70, Lymphocytes (%) (Auto) 18, Monocytes (%) (Auto) 8, Eosinophils (%) (Auto) 3, Basophils (%) (Auto) 0, Neutrophils # (Auto) 7.0, Lymphocytes # (Auto) 1.8, Monocytes # (Auto) 0.8, Eosinophils # (Auto) 0.3, Basophils # (Auto) 0.0, Immature Granulocyte # (Auto) 0.0, Sodium Level 140, Potassium Level 3.3L, Chloride Level 105, Carbon Dioxide Level 22, Anion Gap 13, Blood Urea Nitrogen 11, Creatinine 0.67, Estimat Glomerular Filtration Rate 121, BUN/Creatinine Ratio 16, Glucose Level 87, Calcium Level 8.5 Assessment/Plan Assessment/Plan Assessment/Plan Duodenitis Possible peptic/duodenal ulcer Plan is to continue IV fluids, pain management and anti-emetics as needed. Keep NPO. EGD consent signed and planned for this morning. PHILLIP TENORIO DO 12/24/21 1547: Subjective Time Seen by a Provider: 08:10 Subjective/Events-last exam Pt seen and examined, no new complaints. Review of Systems General: No Chills Pulmonary: No Dyspnea, No Cough Cardiovascular: No: Chest Pain, Palpitations Gastrointestinal: Abdominal Pain (2/10 in epigastric region); No: Nausea, Vo miting Objective Exam General Appearance: No Apparent Distress HEENT: PERRL/EOMI, Moist Mucous Membranes Respiratory: Lungs Clear, Normal Breath Sounds, No Accessory Muscle Use, No Respiratory Distress Cardiovascular: Regular Rate, Rhythm, No Murmur Gastrointestinal: soft, no organomegaly, tenderness (Epigastric region), hernia (umbilical), other (periumbilical scar) Extremity: No Calf Tenderness, No Pedal Edema Assessment/Plan Assessment/Plan Assessment/Plan Duodenitis Possible peptic/duodenal ulcer Plan is to continue IV fluids, pain management and anti-emetics as needed. Keep NPO. EGD consent signed and planned for this morning. Supervisory-Addendum Brief Verification & Attestation Participated in pt care: history, MDM, physical Personally performed: exam, history, MDM, supervision of care Care discussed with: Medical Student Procedures: n/a Verification and Attestation of Medical Student E/M Service A medical student performed and documented this service. I then reviewed and verified all information documented by the medical student and made modifications to such information, when appropriate. I personally performed a physical exam, medical decision making and then discussed any differences between the notes and made revisions as necessary to create one note. Phillip Tenorio , 12/24/21 , 15:47 MICHAEL ROSE Dec 24, 2021 07:47 PHILLIP TENORIO DO Dec 24, 2021 15:47
[2021-12-24] MEDS ORDERED: LACTATED RINGERS 1,000 ML IV STA (08:10)
[2021-12-24] MEDS ORDERED: HURRICAINE EXT TUBE (BENZOCAINE) XX PRN (08:15)
[2021-12-24] MEDS: PANTOPRAZOLE 40 MG (PROTONIX) VIAL IV SCH (09:22)
--- NOTE | 2021-12-24 10:55 | Anesthesia-General Post-Op ---
MAC Patient Condition Mental Status/LOC: Same as Preop Cardiovascular: Satisfactory Nausea/Vomiting: Absent Respiratory: Satisfactory Pain: Controlled Complications: Absent Post Op Complications Complications None Follow Up Care/Instructions Patient Instructions None needed. Anesthesiology Discharge Order Discharge Order Patient is doing well, no complaints, stable vital signs, no apparent adverse anesthesia problems. No complications reported per nursing. EVERTON HERNANDEZ CRNA Dec 24, 2021 10:55
[2021-12-24] MEDS ORDERED: SUCR1TAB36 PO (16:52)
--- NOTE | 2021-12-24 16:53 | Endoscopy Discharge Instruct ---
Endo Procedure/Findings Findings 1.: Duodenal Ulcer 2.: Gastritis 3.: Hiatal Hernia Discharge Instructions - Activity: You might feel a little sleepy until tomorrow. This is due to the medicine you received to relax you. Until tomorrow, you should: NOT drive a car, operate machinery or power tools. NOT drink any alcoholic beverages. NOT make any important decisions or sign importortant papers. Do not return to work until tomorrow, unless otherwise instructed. Resume previous activities tomorrow. Diet: Start by taking liquids. If you tolerate liquids, advance to solid food. 1.: EGD in 6-8 weeks Notify Physician - If you experience excessive bleeding, unusual abdominal pain, fever, or chest pain, contact your doctor immediately. NAVJOT TAPIA DO Dec 24, 2021 16:53
--- NOTE | 2022-01-06 11:44 | Progress Note-Post Operative ---
Post-Operative Progess Note Surgeon (s)/Deckhand (s) Surgeon NAVJOT TAPIA DO Deckhand: none Pre-Operative Diagnosis Abdominal pain, Gastritis Post-Operative Diagnosis Duodenitis with Ulcer Gastritis Esophagitis Hiatal hernia Procedure & Operative Findings Date of Procedure 12/24/21 Procedure Performed/Findings EGD with biopsy PROCEDURE NOTE: After informed consent was obtained, the patient was brought to the endoscopy suite, placed in bed in left lateral decubitus position. He was administered IV sedation by the BRAZING MACHINE FEEDER who then monitored vitals the entire time, heart rate, blood pressure and pulse ox and the scope was inserted down the mouth through the esophagus into the stomach. On the way down, noted some mild esophagitis, took a picture, pushed into the stomach and noted some inflammation. Pushed past the antrum into the duodenum; duodenum looked inflamed with many ulcerations seen. I did a biopsy of one of the duodenal ulcerations. Pulled back and did a biopsy of the antrum, then retroflexed the scope and saw a very small sliding hiatal hernia. I took a picture of this and then pulled the scope into the GE junction and then did a biopsy of the GE junction. Pushed the scope back into the stomach, suctioned all the air out of the stomach. At this point pulled the scope up the esophagus and out of the mouth. The patient tolerated the procedure, and he recovered in endoscopy suite. Anesthesia Type IV sedation by BRAZING MACHINE FEEDER Estimated Blood Loss Estimated blood loss (mL): scant Specimens/Packing Specimens Removed duodenal biopsy antral bx GE jxn bx NAVJOT TAPIA DO Jan 06, 2022 11:44
== END 2021-12-24 17:32 | disposition home or self-care (01) | DRG 384 ==
LOC: EDUNIT# 20:51 → ER 20:54 → 4TH 12-23 00:25
PROVIDERS: ADMIT Surgery; ATTEND Surgery
PROC: 0DB78ZX Excision of Stomach, Pylorus, Via Natural or Artificial Opening Endoscopic, Diagnostic (ICD-10-PCS; 2021-12-24)
PROC: 0DB48ZX Excision of Esophagogastric Junction, Via Natural or Artificial Opening Endoscopic, Diagnostic (ICD-10-PCS; 2021-12-24)
PROC: 0DB98ZX Excision of Duodenum, Via Natural or Artificial Opening Endoscopic, Diagnostic (ICD-10-PCS; principal; 2021-12-24 08:23)
DX: K26.9 Duodenal ulcer, unspecified as acute or chronic, without hemorrhage or perforation (principal); K29.80 Duodenitis without bleeding; K21.9 Gastro-esophageal reflux disease without esophagitis; K57.90 Diverticulosis of intestine, part unspecified, without perforation or abscess without bleeding; K29.70 Gastritis, unspecified, without bleeding; K44.9 Diaphragmatic hernia without obstruction or gangrene
CPT/HCPCS: 36415; 71045; 74177; 80048; 80053; 81000; 82150; 83690; 83735; 84484; 85007; 85025; 85027; 88305; 88342; 93005; 93041; 96374; 96375

== ENCOUNTER → 2022-05-07 | Outpatient (CLI) | payer SELFPAY ==
[~2022-05-07] MED LIST changes: +DICY20TA PO; +ONDA4TAB11 SL; +SUCR1TAB36 PO
== END ==
LOC: LAB 13:32
PROVIDERS: ATTEND Surgery
DX: B96.81 Helicobacter pylori [H. pylori] as the cause of diseases classified elsewhere (principal)

== ENCOUNTER 2022-05-12 08:00 | Outpatient (RCR) | payer SELFPAY | END 2022-06-07 | LOC: LAB 08:00 | PROVIDERS: ATTEND Surgery | DX: Z01.89 Encounter for other specified special examinations (principal); B96.81 Helicobacter pylori [H. pylori] as the cause of diseases classified elsewhere | CPT/HCPCS: 36415; 87338 ==